=== PATIENT | male | born 1990 | race Caucasian/White ===

== ENCOUNTER 2019-03-02 11:35 | Emergency (ER) | payer SELFPAY ==
[~2019-03-02] VITALS: Ht 177.8 cm; Wt 91.0 kg
[2019-03-02] MEDS ORDERED: ondansetron/PF 4mg/2ml inj IV ONE (12:10)
[2019-03-02] MEDS ORDERED: ketorolac trometh. 30mg/ml inj. IV ONE (12:10)
[2019-03-02] MEDS: morphine 4 MG/ML inj SYRINge IV PRN ×2 (12:19→12:36)
[2019-03-02 12:30] LABS: BASOPHILS # (AUTO) 0.1 X10'3 (0-0.2); BASOPHILS % (AUTO) 0.9 % (0-1); EOSINOPHILS # (AUTO) 0.2 X10'3 (0-0.9); EOSINOPHILS % (AUTO) 2.1 % (0-6); HEMATOCRIT 45.1 % (42.0-52.0); LYMPHOCYTES # (AUTO) 2.9 X10'3 (1.1-4.8); LYMPHOCYTES % (AUTO) 29.1 % (21-51); MEAN CORPUSCULAR HEMOGLOBIN 30.7 PG (27.0-31.0); MEAN CORPUSCULAR HGB CONC 33.3 g/dL (33.0-36.5); MEAN CORPUSCULAR VOLUME 92.2 FL (78-98); MONOCYTES # (AUTO) 0.9 X10'3 (0-0.9); MONOCYTES % (AUTO) 9.1 % (2-12); NEUTROPHILS # (AUTO) 5.8 X10'3 (1.8-7.7); NEUTROPHILS % (AUTO) 58.8 % (42-75); PLATELET COUNT 240 X10'3 (140-440); WHITE BLOOD COUNT 9.8 X10'3 (4.5-11.0)
[2019-03-02 12:34] LABS: CLARITY,URINE CLEAR (Clear); COLOR,URINE YELLOW (Yellow); GLUCOSE, URINE NEGATIVE (Neg); KETONES,URINE NEGATIVE (Neg); LEUKOCYTE ESTERASE ,URINE NEGATIVE (Neg); NITRITES, URINE NEGATIVE (Neg); OCCULT BLOOD,URINE TRACE-INTACT (Neg); PROTEIN,URINE NEGATIVE (Neg); UROBILINOGEN,URINE 0.2 E.U/dL (0.2-1.0)
[2019-03-02 12:39] LABS: BACTERIA,URINE NONE SEEN /HPF (Neg); MUCUS STRANDS FEW /LPF (Neg); RBC,URINE 0-2 /HPF (0-2); SQUAMOUS EPITHELIAL CELL,UR NONE SEEN /LPF (FEW); UA COLLECTION TYPE NON-SPECIFIED; WBC,URINE NONE SEEN /HPF (0-4)
[2019-03-02] MEDS ORDERED: HYDROcodone/acetaminophen 5mg/325mg tablet PO ONE (13:40)
[2019-03-02] MEDS ORDERED: metoclopramide 5 mg/ml inj IV ONE (13:55)
[2019-03-02 13:56] LABS: ALANINE AMINOTRANSFERASE 67 U/L (12-78); ALBUMIN 3.8 G/DL (3.4-5.0); ALBUMIN/GLOBULIN RATIO 1.1 (1.1-1.5); ALKALINE PHOSPHATASE 54 IU/L (46-116); ANION GAP 5 (8-16); ASPARTATE AMINO TRANSFERASE 31 U/L (10-37); BILIRUBIN,TOTAL 0.3 MG/DL (0.1-1.0); BLOOD UREA NITROGEN 14 MG/DL (7-18); BUN/CREATININE RATIO 11.8 (5.4-32.0); CALCIUM 8.4 MG/DL (8.5-10.1); CHLORIDE 108 MMOL/L (99-107); CREATININE 1.19 MG/DL (0.60-1.10); GLUCOSE 106 MG/DL (70-104); POTASSIUM 4.5 MMOL/L (3.5-5.1); SODIUM 141 MMOL/L (135-145); TOTAL CARBON DIOXIDE 27.6 MMOL/L (24-32); TOTAL PROTEIN 7.4 G/DL (6.4-8.2); eGFR 73 ML/MIN
[2019-03-02] MEDS ORDERED: ONDA8TAB6 PO (14:05)
[2019-03-02] MEDS ORDERED: fentaNYL/PF 50MCG/1 ML 2ML syringe IV ONE (14:05)
[2019-03-02] MEDS ORDERED: HYDR-3965 PO (14:05)
--- NOTE | 2019-03-02 14:10 | NUR ---
PATIENT CALLING SISTER TO COME AND PICK HIM UP
[2019-03-02 14:18] VITALS: BP 138/88
== END 2019-03-02 14:25 | disposition home or self-care (01) ==
LOC: ER 11:36
DX: N20.0 Calculus of kidney (principal); Z60.2 Problems related to living alone; Z79.899 Other long term (current) drug therapy
CPT/HCPCS: 36415; 74176; 80053; 81001; 85025; 96374; 96375; 99284; J1885; J2270; J2405; J2765; J3010

== ENCOUNTER 2021-06-15 03:46 | Emergency (ER) | payer OTHER ==
[~2021-06-15] VITALS: Ht 177.8 cm; Wt 98.0 kg
[~2021-06-15 03:46] MED LIST: ONDA8TAB6 PO
[2021-06-15 04:17] LABS: BASOPHILS % (AUTO) 0.1 % (0-1); EOSINOPHILS # (AUTO) 0.1 X10'3 (0-0.9); EOSINOPHILS % (AUTO) 0.5 % (0-6); HEMATOCRIT 46.2 % (42.0-52.0); HEMOGLOBIN 15.5 g/dl (14.0-17.9); LYMPHOCYTES # (AUTO) 0.6 X10'3 (1.1-4.8); LYMPHOCYTES % (AUTO) 4.5 % (21-51); MEAN CORPUSCULAR HEMOGLOBIN 31.3 PG (27.0-31.0); MEAN CORPUSCULAR HGB CONC 33.5 g/dL (33.0-36.5); MEAN CORPUSCULAR VOLUME 93.3 FL (78-98); MEAN PLATELET VOLUME 8.3 FL (7.4-10.4); MONOCYTES # (AUTO) 0.9 X10'3 (0-0.9); MONOCYTES % (AUTO) 6.3 % (2-12); NEUTROPHILS # (AUTO) 12.4 X10'3 (1.8-7.7); NEUTROPHILS % (AUTO) 88.6 % (42-75); PLATELET COUNT 224 X10'3 (140-440); RED BLOOD COUNT 4.95 X10'6 (4.70-6.10); RED CELL DISTRIBUTION WIDTH 13.5 % (11.5-14.5); WHITE BLOOD COUNT 13.9 X10'3 (4.5-11.0)
[2021-06-15 04:25] LABS: ALANINE AMINOTRANSFERASE 57 U/L (12-78); ALBUMIN 3.9 G/DL (3.4-5.0); ALKALINE PHOSPHATASE 71 IU/L (46-116); ANION GAP 11 (8-16); ASPARTATE AMINO TRANSFERASE 19 U/L (10-37); BILIRUBIN,TOTAL 0.9 MG/DL (0.1-1.0); BLOOD UREA NITROGEN 16 MG/DL (7-18); BUN/CREATININE RATIO 12.8 (5.4-32.0); CALCIUM 8.4 MG/DL (8.5-10.1); CHLORIDE 104 MMOL/L (99-107); CREATININE 1.25 MG/DL (0.60-1.10); GLUCOSE 123 MG/DL (70-104); POTASSIUM 3.7 MMOL/L (3.5-5.1); SODIUM 140 MMOL/L (135-145); TOTAL CARBON DIOXIDE 25.5 MMOL/L (24-32); TOTAL PROTEIN 7.8 G/DL (6.4-8.2); eGFR 68 ML/MIN
[2021-06-15] MEDS ORDERED: LORazepam 2 mg/ml vial IV ONE (04:25)
[2021-06-15 05:13] LABS: D-DIMER < 0.19 MG/L FEU (0-0.50)
[2021-06-15 05:17] LABS: ALANINE AMINOTRANSFERASE 50 U/L (12-78); ALBUMIN 3.8 G/DL (3.4-5.0); ALBUMIN/GLOBULIN RATIO 1.1 (1.1-1.5); ALKALINE PHOSPHATASE 70 IU/L (46-116); ASPARTATE AMINO TRANSFERASE 27 U/L (10-37); BILIRUBIN,TOTAL 0.9 MG/DL (0.1-1.0); LIPASE 97 U/L (73-393); TOTAL PROTEIN 7.4 G/DL (6.4-8.2)
[2021-06-15 05:25] LABS: BILIRUBIN,DIRECT 0.1 MG/DL (0-0.3)
[2021-06-15 05:39] VITALS: BP 125/77
== END 2021-06-15 07:47 | disposition home or self-care (01) ==
LOC: ER 03:46
DX: R07.89 Other chest pain (principal); Z20.822 Contact with and (suspected) exposure to COVID-19; Z60.2 Problems related to living alone; Z79.899 Other long term (current) drug therapy
CPT/HCPCS: 36415; 71045; 80053; 80076; 83690; 83880; 84484; 85025; 85379; 87635; 93005; 96374; 99285; C9803; J2060

== ENCOUNTER 2021-07-02 23:20 | Inpatient (IN) | payer OTHER ==
[~2021-07-02] VITALS: Ht 177.8 cm; Wt 100.0 kg
[2021-07-02] MEDS ORDERED: levetiracetam inj 1,000 MG in normal saline 100ml IV soln 90 ML IV ONE (23:35)
[2021-07-02] MEDS ORDERED: normal saline 1000ml 1,000 ML IV ONE (23:35)
[2021-07-02] MEDS ORDERED: ondansetron/PF 4mg/2ml inj IV ONE (23:35)
[2021-07-02] MEDS ORDERED: levetiracetam inj 1,000 MG in normal saline 100ml IV soln 100 ML IV ONE (23:36)
[2021-07-03] MEDS ORDERED: naloxone 0.4 mg/ml inj IV ONE (00:15)
[2021-07-03 00:18] LABS: BASOPHILS % (AUTO) 0.1 % (0-1); EOSINOPHILS % (AUTO) 0.1 % (0-6); HEMATOCRIT 47.1 % (42.0-52.0); HEMOGLOBIN 15.9 g/dl (14.0-17.9); LYMPHOCYTES # (AUTO) 1.4 X10'3 (1.1-4.8); LYMPHOCYTES % (AUTO) 6.5 % (21-51); MEAN CORPUSCULAR HEMOGLOBIN 31.3 PG (27.0-31.0); MEAN CORPUSCULAR HGB CONC 33.7 g/dL (33.0-36.5); MEAN CORPUSCULAR VOLUME 92.8 FL (78-98); MEAN PLATELET VOLUME 8.3 FL (7.4-10.4); MONOCYTES # (AUTO) 1.1 X10'3 (0-0.9); MONOCYTES % (AUTO) 5.5 % (2-12); NEUTROPHILS # (AUTO) 18.3 X10'3 (1.8-7.7); NEUTROPHILS % (AUTO) 87.8 % (42-75); PLATELET COUNT 254 X10'3 (140-440); RED BLOOD COUNT 5.07 X10'6 (4.70-6.10); RED CELL DISTRIBUTION WIDTH 13.2 % (11.5-14.5); WHITE BLOOD COUNT 20.8 X10'3 (4.5-11.0)
[2021-07-03 00:29] LABS: ALANINE AMINOTRANSFERASE 45 U/L (12-78); ALBUMIN 3.7 G/DL (3.4-5.0); ALKALINE PHOSPHATASE 72 IU/L (46-116); ANION GAP 12 (8-16); ASPARTATE AMINO TRANSFERASE 27 U/L (10-37); BILIRUBIN,TOTAL 0.3 MG/DL (0.1-1.0); BLOOD UREA NITROGEN 15 MG/DL (7-18); CALCIUM 8.1 MG/DL (8.5-10.1); CHLORIDE 105 MMOL/L (99-107); GLUCOSE 157 MG/DL (70-104); POTASSIUM 3.8 MMOL/L (3.5-5.1); SODIUM 144 MMOL/L (135-145); TOTAL CARBON DIOXIDE 27.1 MMOL/L (24-32); TOTAL PROTEIN 7.5 G/DL (6.4-8.2); eGFR 55 ML/MIN
[2021-07-03 00:31] LABS: CREATINE KINASE 125 U/L (39-308); ETHANOL < 0.010 GM/DL (0.0-0.010)
[2021-07-03] MEDS ORDERED: aspirin 325mg tablet PO ONE (00:40)
[2021-07-03] MEDS ORDERED: heparin 10,000 units/1 ML INJ IV ONE ×2 (01:10)
[2021-07-03] MEDS ORDERED: iohexol 350MG/ML 100ml bottle IV ONE (01:14)
[2021-07-03 01:40] LABS: PARTIAL THROMBOPLASTIN TIME 22 SECONDS (22-32)
[2021-07-03] MEDS ORDERED: CefTRIAXone/D5W-Rocephin 1gm 50 ML IV ONE (01:50)
[2021-07-03] MEDS ORDERED: azithromycin/NS 500mg/250ml 250 ML IV ONE (01:50)
[2021-07-03] MEDS: heparin 25,000 UNIT/250ml bag 250 ML IV SCH (01:55)
[2021-07-03] MEDS ORDERED: NO HOME MEDS (02:10)
[2021-07-03] MEDS ORDERED: potassium Cl 20 mEq SR tablet PO PRN ×2 (03:15)
[2021-07-03] MEDS ORDERED: potassium CL 10mEq/100ml bag 100 ML IV PRN (03:15)
[2021-07-03] MEDS ORDERED: ondansetron/PF 4mg/2ml inj IV PRN (03:15)
[2021-07-03] MEDS ORDERED: mag hydrox/Alum hydrox/simeth 30ml oral suspension PO PRN (03:15)
[2021-07-03] MEDS ORDERED: magnesium 2GM in 50ml NS 50 ML IV PRN (03:15)
[2021-07-03] MEDS ORDERED: magnesium hydroxide 30ml (MOM) UD suspension PO PRN (03:15)
[2021-07-03] MEDS ORDERED: acetaminophen 325mg tablet PO PRN ×2 (03:15)
[2021-07-03] MEDS ORDERED: magnesium Cl slow-release 64mg tablet PO PRN (03:15)
[2021-07-03] MEDS ORDERED: magnesium 4gm in 100ml NS 100 ML IV PRN (03:15)
[2021-07-03] MEDS ORDERED: heparin 25,000 UNIT/250ml bag 250 ML IV SCH (03:20)
[2021-07-03] MEDS: normal saline 1000ml 1,000 ML IV SCH ×3 (03:25→23:18)
[2021-07-03] MEDS ORDERED: LORazepam 1 MG tablet PO PRN (03:25)
[2021-07-03] MEDS ORDERED: vancomycin 1,750 MG in NS 350ml IV soln IV ONE (03:45)
--- NOTE | 2021-07-03 06:57 | NUR ---
Bedside swallow test completed; patient given water.
[2021-07-03 06:59] LABS: CLARITY,URINE CLOUDY (Clear); COLOR,URINE YELLOW (Yellow); GLUCOSE, URINE NEGATIVE (Neg); KETONES,URINE NEGATIVE (Neg); LEUKOCYTE ESTERASE ,URINE NEGATIVE (Neg); NITRITES, URINE NEGATIVE (Neg); OCCULT BLOOD,URINE LARGE (Neg); PH,URINE 6.5 (4.8-8.0); PROTEIN,URINE TRACE mg/dl (Neg); UROBILINOGEN,URINE 0.2 E.U/dL (0.2-1.0)
[2021-07-03 07:04] LABS: UA COLLECTION TYPE CLN CATCH MIDSTREAM
[2021-07-03 07:07] LABS: MUCUS STRANDS FEW /LPF (Neg); SQUAMOUS EPITHELIAL CELL,UR NONE SEEN /LPF (FEW)
[2021-07-03 07:09] LABS: BACTERIA,URINE FEW /HPF (Neg); RBC,URINE TNTC /HPF (0-2)
[2021-07-03 07:12] LABS: URINE AMPHETAMINE SCREEN POSITIVE (Neg); URINE BARBITUATE SCREEN NEGATIVE (Neg); URINE BENZODIAZEPINES SCREEN NEGATIVE (Neg); URINE CANNABINOID SCREEN NEGATIVE (Neg); URINE COCAINE SCREEN NEGATIVE (Neg); URINE METHADONE SCREEN NEGATIVE (Neg); URINE OPIATE SCREEN NEGATIVE (Neg); URINE PHENCYCLIDINE SCREEN NEGATIVE (Neg)
[2021-07-03] MEDS: K and/or MAG REPLACEMENT MC SCH ×2 (08:00→20:00)
[2021-07-03] MEDS: azithromycin/NS 500mg/250ml 250 ML IV SCH (09:30)
--- NOTE | 2021-07-03 09:34 | NUR ---
Patient resting quietly; no apparent distress.
[2021-07-03] MEDS: cefepime inj 2 GM in dextrose 5%-water 100 ML IV SCH ×2 (10:04→22:09)
[2021-07-03] MEDS: levetiracetam inj 500 MG in normal saline 100ml IV soln 100 ML IV SCH (10:40)
--- NOTE | 2021-07-03 15:00 | NUR ---
Patient reports headache not improved; paged hospitalist. Patient reports right hand pain; given ice pack.
--- NOTE | 2021-07-03 16:00 | NUR ---
Patient sleeping; no apparent distress.
[2021-07-03] MEDS: vancomycin/NS 1 GM ADD-VANTAGE 250 ML IV SCH (16:02)
--- NOTE | 2021-07-03 17:00 | NUR ---
Patient sleeping; no apparent distress; even chest rise and fall.
--- NOTE | 2021-07-03 18:01 | NUR ---
Patient reports headache 04/24; hospitalist paged.
--- NOTE | 2021-07-03 18:22 | NUR ---
Hospitalist paged again.
--- NOTE | 2021-07-03 19:25 | NUR ---
ASSUMED CARE OF PT. SEIZURE PRECAUTIONS IN PLACE. HEPARIN DRIP RUNNING. PT COMPLAINS OF HEADACHE, PRIOR RN LET ME KNOW HOSPITALIST HAS BEEN PAGED 3X FOR PAIN MEDICATION.
[2021-07-03] MEDS: morphine 2 MG/ML inj. syringe IV PRN (20:10)
--- NOTE | 2021-07-03 21:06 | NUR ---
CALLED TO GIVE REPORT. RN BUSY WILL CALL BACK IN 10 MINUTES.
[2021-07-03 22:00] VITALS: BP 114/66
[2021-07-03] MEDS: lactobacillus rhamnosus 10,000 MMU CELLS/CAPSULE PO SCH (22:54)
[2021-07-03] MEDS: HYDROcodone/acetaminophen 5mg/325mg tablet PO PRN (23:22)
[2021-07-04] MEDS: levetiracetam inj 500 MG in normal saline 100ml IV soln 100 ML IV SCH ×3 (00:05→19:37)
[2021-07-04] MEDS: heparin 25,000 UNIT/250ml bag 250 ML IV SCH ×2 (01:44→12:21)
[2021-07-04 03:51] LABS: BASOPHILS % (AUTO) 0.3 % (0-1); EOSINOPHILS # (AUTO) 0.1 X10'3 (0-0.9); EOSINOPHILS % (AUTO) 0.5 % (0-6); HEMATOCRIT 38.8 % (42.0-52.0); HEMOGLOBIN 12.9 g/dl (14.0-17.9); LYMPHOCYTES # (AUTO) 2.3 X10'3 (1.1-4.8); LYMPHOCYTES % (AUTO) 18.8 % (21-51); MEAN CORPUSCULAR HEMOGLOBIN 31.1 PG (27.0-31.0); MEAN CORPUSCULAR HGB CONC 33.4 g/dL (33.0-36.5); MEAN CORPUSCULAR VOLUME 93.2 FL (78-98); MEAN PLATELET VOLUME 8.7 FL (7.4-10.4); MONOCYTES # (AUTO) 0.9 X10'3 (0-0.9); MONOCYTES % (AUTO) 7.4 % (2-12); NEUTROPHILS # (AUTO) 8.7 X10'3 (1.8-7.7); PLATELET COUNT 186 X10'3 (140-440); RED BLOOD COUNT 4.16 X10'6 (4.70-6.10); RED CELL DISTRIBUTION WIDTH 13.1 % (11.5-14.5); WHITE BLOOD COUNT 11.9 X10'3 (4.5-11.0)
[2021-07-04 04:02] LABS: ALANINE AMINOTRANSFERASE 32 U/L (12-78); ALBUMIN 2.8 G/DL (3.4-5.0); ALBUMIN/GLOBULIN RATIO 0.9 (1.1-1.5); ALKALINE PHOSPHATASE 54 IU/L (46-116); ANION GAP 5 (8-16); ASPARTATE AMINO TRANSFERASE 18 U/L (10-37); BILIRUBIN,TOTAL 0.8 MG/DL (0.1-1.0); BLOOD UREA NITROGEN 9 MG/DL (7-18); BUN/CREATININE RATIO 8.1 (5.4-32.0); CALCIUM 7.8 MG/DL (8.5-10.1); CHLORIDE 104 MMOL/L (99-107); CREATININE 1.11 MG/DL (0.60-1.10); GLUCOSE 97 MG/DL (70-104); POTASSIUM 3.6 MMOL/L (3.5-5.1); SODIUM 139 MMOL/L (135-145); TOTAL CARBON DIOXIDE 29.9 MMOL/L (24-32); eGFR 78 ML/MIN
[2021-07-04] MEDS: HYDROcodone/acetaminophen 5mg/325mg tablet PO PRN ×2 (04:13→21:07)
[2021-07-04] MEDS: vancomycin/NS 1 GM ADD-VANTAGE 250 ML IV SCH ×3 (04:49→22:52)
--- NOTE | 2021-07-04 06:44 | NUR ---
Problems reprioritized. Patient report given, questions answered & plan of care reviewed with VERENICE HAMMOND.
[2021-07-04] MEDS: K and/or MAG REPLACEMENT MC SCH ×2 (08:00→20:00)
[2021-07-04] MEDS: morphine 2 MG/ML inj. syringe IV PRN ×3 (08:00→19:35)
[2021-07-04] MEDS: lactobacillus rhamnosus 10,000 MMU CELLS/CAPSULE PO SCH ×2 (08:06→19:36)
[2021-07-04] MEDS: cefepime inj 2 GM in dextrose 5%-water 100 ML IV SCH ×2 (09:07→20:25)
[2021-07-04] MEDS: normal saline 1000ml 1,000 ML IV SCH ×2 (09:18→17:52)
--- NOTE | 2021-07-04 11:15 | NUR ---
Initial: Pt admit DX sepsis, bilateral PNA, CKD, ALOC, elevated troponin, and possible dental abscess tox screen positive for meth per EMR. Pt PO pending first regular meal this admit. Pt crying from pain all morning per DCP note likely to impact PO trends. LBM 07/02 per EMR. Will monitor for PO trends and additional nutrition intervention needs this admit. Rec: 1. continue regular diet 2. monitor for additional protein/kcal needs pending PO trends 3. routine bowel care 4. scaled wt this admit; subsequent weekly wts Addendum: 07/04/21 at [address] Amended: Links added.
[2021-07-04] MEDS: heparin 10,000 units/1 ML INJ IV PRN ×2 (12:20→20:48)
[2021-07-04] MEDS: azithromycin/NS 500mg/250ml 250 ML IV SCH (12:26)
[2021-07-04] MEDS ORDERED: VANCOMYCIN LEVEL IV ONE (14:30)
[2021-07-04] MEDS: LORazepam 1 MG tablet PO PRN (17:48)
[2021-07-04 18:00] VITALS: BP 98/62
--- NOTE | 2021-07-04 18:30 | NUR ---
Patient in room MED 313. I have received report from VERENICE Bridges and had the opportunity to ask questions and assume patient care. Patient resting comfortably on bed, mother at bedside. I will continue to monitor.
--- NOTE | 2021-07-04 18:32 | NUR ---
Problems reprioritized. Patient report given, questions answered & plan of care reviewed with MAURICE CALDERA.
[2021-07-04 22:00] VITALS: BP 106/70
--- NOTE | 2021-07-05 01:40 | NUR ---
Patient's PTT is 92, I left Dr. Collin landaverde and will stop Heparin gtt for 120min per protocol.
[2021-07-05 02:00] VITALS: BP 112/59
[2021-07-05] MEDS: LORazepam 2 mg/ml vial IV PRN (02:15)
[2021-07-05] MEDS: heparin 25,000 UNIT/250ml bag 250 ML IV SCH ×2 (05:07→23:29)
[2021-07-05] MEDS: normal saline 1000ml 1,000 ML IV SCH ×3 (05:09→23:43)
--- NOTE | 2021-07-05 06:21 | NUR ---
Problems reprioritized. Patient report given, questions answered & plan of care reviewed with VERENICE Doshi.
[2021-07-05 06:30] VITALS: BP 117/67
[2021-07-05 07:27] LABS: BASOPHILS # (AUTO) 0.1 X10'3 (0-0.2); BASOPHILS % (AUTO) 0.7 % (0-1); EOSINOPHILS # (AUTO) 0.2 X10'3 (0-0.9); EOSINOPHILS % (AUTO) 1.7 % (0-6); HEMATOCRIT 40.1 % (42.0-52.0); HEMOGLOBIN 13.6 g/dl (14.0-17.9); LYMPHOCYTES # (AUTO) 1.7 X10'3 (1.1-4.8); LYMPHOCYTES % (AUTO) 19.2 % (21-51); MEAN CORPUSCULAR HEMOGLOBIN 31.5 PG (27.0-31.0); MEAN CORPUSCULAR HGB CONC 33.8 g/dL (33.0-36.5); MEAN CORPUSCULAR VOLUME 93.1 FL (78-98); MEAN PLATELET VOLUME 9.6 FL (7.4-10.4); MONOCYTES # (AUTO) 0.7 X10'3 (0-0.9); MONOCYTES % (AUTO) 8.1 % (2-12); NEUTROPHILS # (AUTO) 6.3 X10'3 (1.8-7.7); NEUTROPHILS % (AUTO) 70.3 % (42-75); PLATELET COUNT 176 X10'3 (140-440); RED BLOOD COUNT 4.31 X10'6 (4.70-6.10); RED CELL DISTRIBUTION WIDTH 12.9 % (11.5-14.5)
[2021-07-05 07:37] LABS: ALANINE AMINOTRANSFERASE 26 U/L (12-78); ALBUMIN 2.8 G/DL (3.4-5.0); ALBUMIN/GLOBULIN RATIO 0.8 (1.1-1.5); ALKALINE PHOSPHATASE 54 IU/L (46-116); ANION GAP 6 (8-16); ASPARTATE AMINO TRANSFERASE 14 U/L (10-37); BILIRUBIN,TOTAL 0.6 MG/DL (0.1-1.0); BLOOD UREA NITROGEN 7 MG/DL (7-18); BUN/CREATININE RATIO 6.1 (5.4-32.0); CALCIUM 8.2 MG/DL (8.5-10.1); CHLORIDE 103 MMOL/L (99-107); CREATININE 1.15 MG/DL (0.60-1.10); GLUCOSE 93 MG/DL (70-104); POTASSIUM 3.8 MMOL/L (3.5-5.1); SODIUM 138 MMOL/L (135-145); TOTAL CARBON DIOXIDE 29.1 MMOL/L (24-32); TOTAL PROTEIN 6.2 G/DL (6.4-8.2); eGFR 75 ML/MIN
[2021-07-05] MEDS: lactobacillus rhamnosus 10,000 MMU CELLS/CAPSULE PO SCH ×2 (07:44→20:30)
[2021-07-05] MEDS: vancomycin/NS 1 GM ADD-VANTAGE 250 ML IV SCH ×2 (07:44→15:11)
[2021-07-05] MEDS: heparin 10,000 units/1 ML INJ IV PRN ×2 (07:49→23:30)
[2021-07-05] MEDS: K and/or MAG REPLACEMENT MC SCH ×2 (08:00→19:51)
[2021-07-05] MEDS: levetiracetam inj 500 MG in normal saline 100ml IV soln 100 ML IV SCH ×2 (09:32→20:30)
[2021-07-05] MEDS: cefepime inj 2 GM in dextrose 5%-water 100 ML IV SCH ×2 (09:59→20:35)
[2021-07-05] MEDS: azithromycin/NS 500mg/250ml 250 ML IV SCH (10:55)
[2021-07-05] MEDS: HYDROcodone/acetaminophen 5mg/325mg tablet PO PRN ×2 (10:58→20:35)
[2021-07-05 11:00] VITALS: BP 102/55
[2021-07-05] MEDS ORDERED: VANCOMYCIN LEVEL IV ONE (14:30)
[2021-07-05 15:00] VITALS: BP 125/75
[2021-07-05] MEDS: VANCOmycin 1250MG/NS 250ml Bag 250 ML IV SCH ×2 (16:12→23:42)
[2021-07-05] MEDS: morphine 2 MG/ML inj. syringe IV PRN (16:50)
[2021-07-05 18:00] VITALS: BP 125/69
--- NOTE | 2021-07-05 18:39 | NUR ---
Problems reprioritized. Patient report given, questions answered & plan of care reviewed with VERENICE Jones.
[2021-07-05] MEDS: LORazepam 1 MG tablet PO PRN (20:30)
[2021-07-05 22:00] VITALS: BP 107/77
[2021-07-06 02:00] VITALS: BP 110/63
[2021-07-06] MEDS: morphine 2 MG/ML inj. syringe IV PRN (03:34)
[2021-07-06] MEDS: heparin 25,000 UNIT/250ml bag 250 ML IV SCH (03:36)
[2021-07-06 06:00] VITALS: BP 146/78
[2021-07-06 06:37] LABS: BASOPHILS % (AUTO) 0.4 % (0-1); EOSINOPHILS # (AUTO) 0.2 X10'3 (0-0.9); EOSINOPHILS % (AUTO) 2.3 % (0-6); HEMATOCRIT 36.8 % (42.0-52.0); HEMOGLOBIN 12.4 g/dl (14.0-17.9); LYMPHOCYTES % (AUTO) 24.9 % (21-51); MEAN CORPUSCULAR HEMOGLOBIN 31.2 PG (27.0-31.0); MEAN CORPUSCULAR HGB CONC 33.7 g/dL (33.0-36.5); MEAN CORPUSCULAR VOLUME 92.4 FL (78-98); MEAN PLATELET VOLUME 8.8 FL (7.4-10.4); MONOCYTES # (AUTO) 0.7 X10'3 (0-0.9); MONOCYTES % (AUTO) 9.2 % (2-12); NEUTROPHILS # (AUTO) 5.1 X10'3 (1.8-7.7); NEUTROPHILS % (AUTO) 63.2 % (42-75); PLATELET COUNT 210 X10'3 (140-440); RED BLOOD COUNT 3.98 X10'6 (4.70-6.10); RED CELL DISTRIBUTION WIDTH 12.6 % (11.5-14.5); WHITE BLOOD COUNT 8.1 X10'3 (4.5-11.0)
[2021-07-06 06:56] LABS: ALANINE AMINOTRANSFERASE 26 U/L (12-78); ALBUMIN 2.6 G/DL (3.4-5.0); ALBUMIN/GLOBULIN RATIO 0.8 (1.1-1.5); ALKALINE PHOSPHATASE 49 IU/L (46-116); ANION GAP 6 (8-16); ASPARTATE AMINO TRANSFERASE 18 U/L (10-37); BILIRUBIN,TOTAL 0.6 MG/DL (0.1-1.0); BLOOD UREA NITROGEN 7 MG/DL (7-18); BUN/CREATININE RATIO 6.9 (5.4-32.0); CALCIUM 8.2 MG/DL (8.5-10.1); CHLORIDE 106 MMOL/L (99-107); CREATININE 1.01 MG/DL (0.60-1.10); GLUCOSE 92 MG/DL (70-104); POTASSIUM 3.7 MMOL/L (3.5-5.1); SODIUM 139 MMOL/L (135-145); TOTAL CARBON DIOXIDE 27.2 MMOL/L (24-32); eGFR 87 ML/MIN
--- NOTE | 2021-07-06 07:04 | NUR ---
PAGER ID: [phone] MESSAGE: [id number]. Patient's PTT is 98. I have stopped the infusion now at 0700. Ana CALDERA [id number]
[2021-07-06] MEDS: lactobacillus rhamnosus 10,000 MMU CELLS/CAPSULE PO SCH (07:44)
[2021-07-06] MEDS: HYDROcodone/acetaminophen 5mg/325mg tablet PO PRN (07:44)
[2021-07-06] MEDS: cefepime inj 2 GM in dextrose 5%-water 100 ML IV SCH (07:45)
[2021-07-06] MEDS: levetiracetam inj 500 MG in normal saline 100ml IV soln 100 ML IV SCH (07:46)
[2021-07-06] MEDS: VANCOmycin 1250MG/NS 250ml Bag 250 ML IV SCH ×2 (07:46→16:00)
--- NOTE | 2021-07-06 07:54 | NUR ---
PAGER ID: [phone] MESSAGE: [phone]. Patient is complaining of chest tightness/pain. He says he feels this when he is anxious, will be giving Ativan soon. Heart rate 87 BP is 147/78. Ana CALDERA [id number]
[2021-07-06] MEDS ORDERED: azithromycin 250mg tablet PO SCH (08:00)
[2021-07-06] MEDS: K and/or MAG REPLACEMENT MC SCH (08:00)
[2021-07-06 11:00] VITALS: BP 125/78
[2021-07-06] MEDS: normal saline 1000ml 1,000 ML IV SCH (11:18)
--- NOTE | 2021-07-06 12:30 | NUR ---
PAGER ID: [phone] MESSAGE: [phone]. Patient would like to know when he will go home, is stating he wants to go home. Ana CALDERA [id number]
--- NOTE | 2021-07-06 14:00 | NUR ---
Met with patient in regards to substance use and to see if patient wanted any resources for treatment options. Patient is interested in going to an inpatient rehab facility. Patients insurance is currently pending medical so I gave patient [facility] number and my card so he can follow up when he is discharged and see if medical is approved by then. I told patient that he can call me also when he is discharged and I will help him.
[2021-07-06] MEDS: LORazepam 2 mg/ml vial IV PRN (14:04)
[2021-07-06] MEDS ORDERED: VANCOMYCIN LEVEL IV ONE (15:30)
--- NOTE | 2021-07-06 17:22 | NUR ---
PAGER ID: [phone] MESSAGE: [phone]. Patient wants to leave AMA. Ana CALDERA [id number]
--- NOTE | 2021-07-06 18:30 | NUR ---
Patient signed forms to leave AMA even after receiving education on the risks of leaving AMA and not being cleared by MD. Dr. Hernandez was paged regarding the matter, she is aware. IVs were removed both in LFA and right arm, catheters were intact. Belongings were given to patient. Family/friend was waiting at door to be his transportation. Patient was walked to the elevator, free from injuries.
== END 2021-07-06 17:50 | disposition left against medical advice (07) | DRG 871 ==
LOC: ER 23:21 → ED HOLD 07-03 03:16 → MED 3N 07-03 21:30
PROVIDERS: ADMIT Internal Medicine; ATTEND Internal Medicine
PROC: B32T1ZZ Computerized Tomography (CT Scan) of Left Pulmonary Artery using Low Osmolar Contrast (ICD-10-PCS; 2021-07-03)
PROC: B3201ZZ Computerized Tomography (CT Scan) of Thoracic Aorta using Low Osmolar Contrast (ICD-10-PCS; 2021-07-03)
PROC: B32S1ZZ Computerized Tomography (CT Scan) of Right Pulmonary Artery using Low Osmolar Contrast (ICD-10-PCS; 2021-07-03)
PROC: 4A10X4Z Monitoring of Central Nervous Electrical Activity, External Approach (ICD-10-PCS; principal; 2021-07-04)
DX: A41.9 Sepsis, unspecified organism (principal); J18.9 Pneumonia, unspecified organism; G93.40 Encephalopathy, unspecified; G40.802 Other epilepsy, not intractable, without status epilepticus; Z20.822 Contact with and (suspected) exposure to COVID-19; Z60.2 Problems related to living alone; Z53.29 Procedure and treatment not carried out because of patient's decision for other reasons; N18.9 Chronic kidney disease, unspecified; R55 Syncope and collapse; R77.8 Other specified abnormalities of plasma proteins
CPT/HCPCS: 36415; 70450; 70486; 71045; 71275; 72125; 80053; 80202; 80305; 80320; 81001; 82550; 83605; 83880; 84145; 84484; 85025; 85610; 85730; 87040; 87081; 87088; 87635; 92508; 92616; 93005; 95816; 97110; 97116; 97163; 97530; 99285; C9803; G0378; J0456; J0692; J0696; J1644; J1953; J2060; J2270; J2310; J2405; J3370; J3490; J7030; J7040; J7060; Q9967

== ENCOUNTER 2021-10-08 04:24 | Inpatient (IN) | payer MEDICAID ==
[~2021-10-08] VITALS: Ht 180.3 cm; Wt 100.0 kg
[~2021-10-08 04:24] MED LIST changes: +NO HOME MEDS; -ONDA8TAB6 PO
[2021-10-08] MEDS ORDERED: normal saline 1000ml 1,000 ML IV ONE (04:45)
[2021-10-08] MEDS ORDERED: morphine 4 MG/ML inj SYRINge IV ONE (04:45)
[2021-10-08] MEDS ORDERED: LORazepam 2 mg/ml vial IV ONE (04:50)
--- NOTE | 2021-10-08 05:29 | NUR ---
Pt back from CT. [place], alert, no acute/resp distress. PIV site c/d/i s complication. Pt remains in C-collar per ERP
[2021-10-08 06:08] LABS: BASOPHILS % (AUTO) 0.3 % (0-1); EOSINOPHILS % (AUTO) 0.1 % (0-6); HEMATOCRIT 39.5 % (42.0-52.0); HEMOGLOBIN 13.1 g/dl (14.0-17.9); LYMPHOCYTES # (AUTO) 0.2 X10'3 (1.1-4.8); LYMPHOCYTES % (AUTO) 1.6 % (21-51); MEAN CORPUSCULAR HEMOGLOBIN 30.1 PG (27.0-31.0); MEAN CORPUSCULAR HGB CONC 33.1 g/dL (33.0-36.5); MEAN CORPUSCULAR VOLUME 91.2 FL (78-98); MEAN PLATELET VOLUME 7.8 FL (7.4-10.4); MONOCYTES # (AUTO) 0.5 X10'3 (0-0.9); MONOCYTES % (AUTO) 3.6 % (2-12); NEUTROPHILS # (AUTO) 14.1 X10'3 (1.8-7.7); NEUTROPHILS % (AUTO) 94.4 % (42-75); PLATELET COUNT 204 X10'3 (140-440); RED BLOOD COUNT 4.34 X10'6 (4.70-6.10); RED CELL DISTRIBUTION WIDTH 13.3 % (11.5-14.5); WHITE BLOOD COUNT 14.9 X10'3 (4.5-11.0)
--- NOTE | 2021-10-08 06:09 | NUR ---
Pt pink, no acute/resp distress. PIV site c/d/i s complication or adverse. Report given to Kelly CALDERA
[2021-10-08 06:23] LABS: ALANINE AMINOTRANSFERASE 32 U/L (12-78); ALBUMIN 3.3 G/DL (3.4-5.0); ALBUMIN/GLOBULIN RATIO 0.8 (1.1-1.5); ALKALINE PHOSPHATASE 74 IU/L (46-116); ANION GAP 5 (8-16); ASPARTATE AMINO TRANSFERASE 32 U/L (10-37); BILIRUBIN,TOTAL 0.9 MG/DL (0.1-1.0); BLOOD UREA NITROGEN 10 MG/DL (7-18); BUN/CREATININE RATIO 9.1 (5.4-32.0); CALCIUM 7.9 MG/DL (8.5-10.1); CHLORIDE 102 MMOL/L (99-107); GLUCOSE 109 MG/DL (70-104); POTASSIUM 3.7 MMOL/L (3.5-5.1); SODIUM 134 MMOL/L (135-145); TOTAL CARBON DIOXIDE 26.7 MMOL/L (24-32); TOTAL PROTEIN 7.3 G/DL (6.4-8.2); eGFR 78 ML/MIN
[2021-10-08 06:30] LABS: APTT 30 SECONDS (22-32)
[2021-10-08] MEDS ORDERED: vancomycin inj 1,750 MG in normal saline 500ml IV soln 350 ML IV ONE (06:30)
--- NOTE | 2021-10-08 06:30 | NUR ---
patient in bed,c collar on.
[2021-10-08] MEDS ORDERED: CefTRIAXone 2gm/D5W 50ml BAG 50 ML IV ONE (06:35)
[2021-10-08] MEDS ORDERED: dexamethasone sod phosphate 10mg/ml inj IV STA (06:36)
[2021-10-08] MEDS ORDERED: CefTRIAXone 2gm/NS 100ml IVPB 100 ML IV ONE (07:00)
[2021-10-08] MEDS ORDERED: levetiracetam inj 1,000 MG in normal saline 100ml IV soln 90 ML IV STA (07:42)
[2021-10-08] MEDS ORDERED: levetiracetam-NS 1000mg/100ml 100 ML IV STA (07:45)
[2021-10-08 07:47] LABS: GLUCOSE,CSF 73 MG/DL (40-75); TOTAL PROTEIN,CSF 97 MG/DL (15-45)
[2021-10-08 07:51] LABS: APPEARANCE,CSF CLEAR; CSF SUPERNATANT COLOR COLORLESS; CSF VOLUME 2 ML; TUBE# COUNTED 2
[2021-10-08 07:53] LABS: CSF RBC 1 /CU MM (0); CSF WBC CT 1 /CU MM (0-5)
--- NOTE | 2021-10-08 07:56 | NUR ---
notified critical lab value csf wbc is 1.
[2021-10-08 09:06] LABS: CLARITY,URINE CLEAR (Clear); COLOR,URINE YELLOW (Yellow); GLUCOSE, URINE NEGATIVE (Neg); KETONES,URINE NEGATIVE (Neg); LEUKOCYTE ESTERASE ,URINE NEGATIVE (Neg); NITRITES, URINE NEGATIVE (Neg); OCCULT BLOOD,URINE NEGATIVE (Neg); PH,URINE 7.5 (4.8-8.0); PROTEIN,URINE NEGATIVE (Neg)
[2021-10-08 09:07] LABS: UA COLLECTION TYPE CLN CATCH MIDSTREAM
[2021-10-08 09:08] LABS: URINE AMPHETAMINE SCREEN POSITIVE (Neg); URINE BARBITUATE SCREEN NEGATIVE (Neg); URINE BENZODIAZEPINES SCREEN NEGATIVE (Neg); URINE CANNABINOID SCREEN NEGATIVE (Neg); URINE COCAINE SCREEN NEGATIVE (Neg); URINE METHADONE SCREEN NEGATIVE (Neg); URINE OPIATE SCREEN POSITIVE (Neg); URINE PHENCYCLIDINE SCREEN NEGATIVE (Neg)
--- NOTE | 2021-10-08 09:26 | NUR ---
pt unable to sign mri consent at this time.pt will not answer questions from screening form,pt kept moaning.
--- NOTE | 2021-10-08 11:00 | NUR ---
Dr. Hernandez at bedside.
[2021-10-08] MEDS ORDERED: potassium Cl 20 mEq SR tablet PO PRN ×2 (11:25)
[2021-10-08] MEDS ORDERED: PERFLUTREN PROTEIN-A MICROSPHR (Optison) 0.22 MG/ML 3ML VIAL IV ONE (11:25)
[2021-10-08] MEDS ORDERED: potassium CL 10mEq/100ml bag 100 ML IV PRN (11:25)
[2021-10-08] MEDS ORDERED: ondansetron/PF 4mg/2ml inj IV PRN (11:25)
[2021-10-08] MEDS ORDERED: magnesium 4gm in 100ml NS 100 ML IV PRN (11:25)
[2021-10-08] MEDS ORDERED: magnesium Cl slow-release 64mg tablet PO PRN (11:25)
[2021-10-08] MEDS ORDERED: magnesium 2GM in 50ml NS 50 ML IV PRN (11:25)
[2021-10-08] MEDS ORDERED: acetaminophen 325mg tablet PO PRN (11:25)
[2021-10-08] MEDS: normal saline 1000ml 1,000 ML IV SCH ×2 (11:45→14:23)
--- NOTE | 2021-10-08 12:10 | NUR ---
spoke to patients sister regarding pts condition and IPA. pt is negative for covid and meningitis. 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 sister is unsure of diagnosis and details related to patients medical condition
[2021-10-08 12:44] LABS: MAGNESIUM 1.6 MG/DL (1.5-2.4)
[2021-10-08 14:04] VITALS: BP 96/56
[2021-10-08 18:00] VITALS: BP 123/73
[2021-10-08 19:44] LABS: CREATINE KINASE 47 U/L (39-308)
[2021-10-08] MEDS: K and/or MAG REPLACEMENT MC SCH (20:00)
[2021-10-08 22:00] VITALS: BP 129/80
[2021-10-09 02:00] VITALS: BP 107/89
[2021-10-09 06:00] VITALS: BP 118/77
[2021-10-09 07:25] LABS: BASOPHILS % (AUTO) 0.3 % (0-1); EOSINOPHILS % (AUTO) 0.2 % (0-6); HEMATOCRIT 41.8 % (42.0-52.0); HEMOGLOBIN 13.7 g/dl (14.0-17.9); LYMPHOCYTES # (AUTO) 0.5 X10'3 (1.1-4.8); LYMPHOCYTES % (AUTO) 4.9 % (21-51); MEAN CORPUSCULAR HEMOGLOBIN 30.2 PG (27.0-31.0); MEAN CORPUSCULAR HGB CONC 32.8 g/dL (33.0-36.5); MEAN PLATELET VOLUME 8.4 FL (7.4-10.4); MONOCYTES # (AUTO) 0.7 X10'3 (0-0.9); MONOCYTES % (AUTO) 7.3 % (2-12); NEUTROPHILS % (AUTO) 87.3 % (42-75); PLATELET COUNT 203 X10'3 (140-440); RED BLOOD COUNT 4.54 X10'6 (4.70-6.10); RED CELL DISTRIBUTION WIDTH 13.6 % (11.5-14.5); WHITE BLOOD COUNT 10.3 X10'3 (4.5-11.0)
[2021-10-09 07:36] LABS: ALBUMIN 2.9 G/DL (3.4-5.0); ANION GAP 9 (8-16); BLOOD UREA NITROGEN 13 MG/DL (7-18); BUN/CREATININE RATIO 13.7 (5.4-32.0); CALCIUM 8.5 MG/DL (8.5-10.1); CHLORIDE 102 MMOL/L (99-107); CREATININE 0.95 MG/DL (0.60-1.10); GLUCOSE 100 MG/DL (70-104); MAGNESIUM 2.3 MG/DL (1.5-2.4); POTASSIUM 4.5 MMOL/L (3.5-5.1); SODIUM 135 MMOL/L (135-145); TOTAL CARBON DIOXIDE 24.2 MMOL/L (24-32); eGFR > 90 ML/MIN
[2021-10-09] MEDS: K and/or MAG REPLACEMENT MC SCH (08:00)
[2021-10-09 11:00] VITALS: BP 122/88
[2021-10-09] MEDS ORDERED: CefTRIAXone 2gm/D5W 50ml BAG 50 ML IV SCH (11:50)
[2021-10-09] MEDS ORDERED: vancomycin/NS 1 GM ADD-VANTAGE 250 ML IV SCH (13:00)
[2021-10-09] MEDS: normal saline 1000ml 1,000 ML IV SCH (14:17)
[2021-10-09 15:00] VITALS: BP 135/76
[2021-10-10] MEDS ORDERED: ONDA8TAB13 PO (11:49)
[2021-10-10] MEDS ORDERED: PANT-47 PO (11:49)
[2021-10-10] MEDS ORDERED: VANCOMYCIN LEVEL IV ONE (12:30)
== END 2021-10-09 17:36 | disposition left against medical advice (07) | DRG 861 ==
LOC: ER 04:25 → ED HOLD 11:25 → PCU 3S 13:43
PROVIDERS: ADMIT Internal Medicine; ATTEND Internal Medicine
PROC: 009U3ZX Drainage of Spinal Canal, Percutaneous Approach, Diagnostic (ICD-10-PCS; principal; 2021-10-08)
DX: R52 Pain, unspecified (principal); F15.90 Other stimulant use, unspecified, uncomplicated; R50.9 Fever, unspecified; Z60.2 Problems related to living alone; Z20.822 Contact with and (suspected) exposure to COVID-19; Z53.29 Procedure and treatment not carried out because of patient's decision for other reasons
CPT/HCPCS: 36415; 62270; 70450; 70551; 71045; 72125; 72128; 72131; 80048; 80053; 80305; 81003; 82550; 82945; 83605; 83735; 83880; 84157; 84484; 85025; 85610; 85730; 87015; 87040; 87070; 87635; 89051; 93005; 93306; 96361; 96365; 96367; 96375; 97116; 97161; 99285; C9803; G0378; J0696; J1100; J1953; J2060; J2270; J3370; J7030; J7040

== ENCOUNTER 2022-01-26 00:26 | Emergency (ER) | payer MEDICAID ==
[~2022-01-26] VITALS: Ht 177.8 cm; Wt 80.9 kg
[~2022-01-26 00:26] MED LIST changes: +ONDA8TAB13 PO; +PANT-47 PO
[2022-01-26] MEDS ORDERED: normal saline 1000ml 1,000 ML IV ONE ×2 (01:00→03:50)
[2022-01-26] MEDS ORDERED: ondansetron/PF 4mg/2ml inj IV ONE (01:00)
[2022-01-26] MEDS ORDERED: ketorolac trometh. 30mg/ml inj. IV ONE (01:00)
[2022-01-26] MEDS ORDERED: ondansetron/PF 4mg/2ml inj ONE (01:10)
[2022-01-26] MEDS ORDERED: ketorolac trometh. 30mg/ml inj. ONE (01:10)
[2022-01-26 01:33] LABS: BASOPHILS % (AUTO) 0.5 % (0-1); EOSINOPHILS # (AUTO) 0.1 X10'3 (0-0.9); HEMATOCRIT 37.4 % (42.0-52.0); HEMOGLOBIN 12.6 g/dl (14.0-17.9); LYMPHOCYTES # (AUTO) 1.8 X10'3 (1.1-4.8); LYMPHOCYTES % (AUTO) 20.1 % (21-51); MEAN CORPUSCULAR HEMOGLOBIN 30.8 PG (27.0-31.0); MEAN CORPUSCULAR HGB CONC 33.8 g/dL (33.0-36.5); MEAN PLATELET VOLUME 7.9 FL (7.4-10.4); MONOCYTES # (AUTO) 1.3 X10'3 (0-0.9); MONOCYTES % (AUTO) 14.7 % (2-12); NEUTROPHILS # (AUTO) 5.7 X10'3 (1.8-7.7); NEUTROPHILS % (AUTO) 63.7 % (42-75); PLATELET COUNT 212 X10'3 (140-440); RED BLOOD COUNT 4.11 X10'6 (4.70-6.10); RED CELL DISTRIBUTION WIDTH 14.4 % (11.5-14.5)
[2022-01-26 01:37] LABS: ALANINE AMINOTRANSFERASE 22 U/L (12-78); ALBUMIN 3.4 G/DL (3.4-5.0); ALBUMIN/GLOBULIN RATIO 0.8 (1.1-1.5); ALKALINE PHOSPHATASE 97 IU/L (46-116); AMYLASE 33 U/L (25-115); ANION GAP 6 (8-16); ASPARTATE AMINO TRANSFERASE 32 U/L (10-37); BILIRUBIN,TOTAL 0.4 MG/DL (0.1-1.0); BLOOD UREA NITROGEN 10 MG/DL (7-18); BUN/CREATININE RATIO 8.2 (5.4-32.0); CALCIUM 8.2 MG/DL (8.5-10.1); CHLORIDE 104 MMOL/L (99-107); CREATININE 1.22 MG/DL (0.60-1.10); GLUCOSE 92 MG/DL (70-104); LIPASE 76 U/L (73-393); POTASSIUM 3.7 MMOL/L (3.5-5.1); SODIUM 138 MMOL/L (135-145); TOTAL CARBON DIOXIDE 28.3 MMOL/L (24-32); TOTAL PROTEIN 7.5 G/DL (6.4-8.2); eGFR 69 ML/MIN
[2022-01-26] MEDS ORDERED: ONDA8TAB13 PO (05:47)
[2022-01-26] MEDS ORDERED: FLO0.4C PO (05:47)
[2022-01-26] MEDS ORDERED: IBUP-1984 PO (05:47)
[2022-01-26 05:53] LABS: CLARITY,URINE CLEAR (Clear); COLOR,URINE YELLOW (Yellow); UA COLLECTION TYPE URINAL
[2022-01-26 05:54] LABS: GLUCOSE, URINE NEGATIVE (Neg); KETONES,URINE NEGATIVE (Neg); LEUKOCYTE ESTERASE ,URINE NEGATIVE (Neg); NITRITES, URINE NEGATIVE (Neg); OCCULT BLOOD,URINE LARGE (Neg); PROTEIN,URINE NEGATIVE (Neg); UROBILINOGEN,URINE 0.2 E.U/dL (0.2-1.0)
[2022-01-26 06:02] LABS: BACTERIA,URINE NONE SEEN /HPF (Neg); MUCUS STRANDS NONE SEEN /LPF (Neg); SQUAMOUS EPITHELIAL CELL,UR FEW /LPF (FEW); WBC,URINE 0-4 /HPF (0-4)
[2022-01-26 06:03] VITALS: BP 125/69
== END 2022-01-26 06:44 | disposition home or self-care (01) ==
LOC: ER 00:26
DX: N23 Unspecified renal colic (principal); F15.20 Other stimulant dependence, uncomplicated
CPT/HCPCS: 36415; 74176; 80053; 81001; 82150; 83690; 85025; 96361; 96374; 96375; 99284; J1885; J2405; J7030

== ENCOUNTER 2022-12-26 20:51 | Emergency (ER) | payer MEDICAID ==
[~2022-12-26] VITALS: Ht 175.3 cm; Wt 94.1 kg
[2022-12-26 20:55] VITALS: BP 134/94
--- NOTE | 2022-12-26 21:11 | NUR ---
Patient refused xray and left the ER w/o being seen
== END 2022-12-26 21:12 | disposition left against medical advice (07) ==
LOC: ER 20:52
DX: M25.571 Pain in right ankle and joints of right foot (principal); Z53.21 Procedure and treatment not carried out due to patient leaving prior to being seen by health care provider
CPT/HCPCS: 99281

== ENCOUNTER 2025-02-12 11:08 | Inpatient (IN) | payer MEDICAID ==
[~2025-02-12] VITALS: Ht 175.3 cm; Wt 83.3 kg
[~2025-02-12 11:08] MED LIST changes: +ONDA-245 PO; -ONDA8TAB13 PO
[2025-02-12] MEDS: normal saline 1000ML IV soln IVB ONE (12:02)
[2025-02-12 12:15] LABS: MEAN PLATELET VOLUME 7.3 FL (7.4-10.4); RED CELL DISTRIBUTION WIDTH 13.3 % (11.5-14.5)
[2025-02-12 12:25] LABS: CREATININE 1.00 MG/DL (0.60-1.10); TOTAL CARBON DIOXIDE 27.0 MMOL/L (24-32); eCRCL 104 ML/MIN; eGFR 86 ML/MIN
[2025-02-12] MEDS ORDERED: iohexol 300mg/ml 100ml inj. ONE (12:35)
[2025-02-12] MEDS: acetaminophen 1,000mg/100ml IV 100 ML IV SCH (12:41)
[2025-02-12] MEDS: clindamycin-Cleocin 900mg/D5W 50 ML IV ONE (13:06)
--- NOTE | 2025-02-12 13:32 | RADIOLOGY REPORT ---
CT CT NECK SOFT TISSUES W/ IV CONTRAST INDICATION: Evaluation of possible tongue abscess and r/o ludwigz angina EXAM DATE: 02/12/2025 12:53 PM COMPARISON: CT HEAD on DOS: 10/08/21 RADIATION DOSE: CTDIvol: 13 mGy, DLP: 473 mGy*cm PROCEDURE: Using the CT scanner, contiguous axial images were obtained from the great vessels to abov e the orbits following intravenous administration of mL IV contrast. Coronal and sagittal reformat dana images were then generated. All CT scans at this medical facility are performed using dose modulation techniques as appropriate t o a performed exam including the following: Automated exposure control was utilized; adjustment of th e MA and/or KV according to patient size; and use of iterative reconstruction technique. FINDINGS: Edema at the base of tongue and left submandibular gland and prominent palatine tonsils wi th prominent bilateral cervical lymph nodules. The pharynx, larynx and trachea are otherwise normal. The parotid, submandibular and thyroid glands appear otherwise normal. The visible paranasal sinuses , mastoid air cells and middle ear cavities are normally aerated. The skeletal structures, vasculatur e, and lung apices are normal. The visualized intracranial structures are normal. IMPRESSION: Edema at the base of tongue and left submandibular gland and prominent palatine tonsils with promine nt bilateral cervical lymph nodules could be seen with an inflammatory reaction such as from allergie s. However no focal fluid collection to suggest for abscess. Airway appears patent.
--- NOTE | 2025-02-12 14:49 | Physician Documentation ---
History of Present Illness ~ Chief Complaint: Tongue Pain Stated Complaint: HAND INFECTION AND TONGUE SWELLING Time Seen by MD: 11:47 Mode of Arrival: Ambulatory Medication Reconciliation Allergies: Coded Allergies: No Known Allergies (Unverified , 01/26/22) Scheduled Ondansetron 8mg ODT (Ondansetron Odt), 1 TAB PO Q6H Ondansetron 8mg ODT (Ondansetron Odt), 1 TAB PO Q6H Pantoprazole Sodium (PROTONIX tablet), 1 TAB PO DAILY Miscellaneous Medications Home Med List (No Home Medications), (Reported) Past Medical History Past Medical History: Seizures Past Surgical History: noncontributory Patient History: Patient reports no known family medical history. Smoking Status: Never smoker Drug Use: methamphetamine Lives with: Alone Lives In: Home Physical Exam Vital Signs: Temperature: 99.2, Source: Oral, Heart Rate: 74, Respiratory Rate: 14, BP: 130/86, Pulse Oximetry: 97, Weight: 83.300 Oxygen Flow Rate: 0 Progress Results/Orders Results/Orders Orders - THONY CORREA CURBING STONECUTTER Culture Body Fluid Order (02/12/25 11:47) Ct Neck Soft Tissues (02/12/25 12:59) Acetaminophen 1,000mg/100ml Iv (Ofirmev (02/12/25 14:00) Page Hospitalist (02/12/25 13:55) Fill Out Med Reconciliation (02/12/25 13:55) Strep A Rapid (02/12/25 14:43) Completed Orders - THONY CORREA [employer] STONECUTTER Cbc/Diff (02/12/25 11:47) CMP (02/12/25 11:47) LA (02/12/25 11:47) Ct Neck Soft Tissues (02/12/25 12:59) Methylprednisolone Sod Succ (Solumedrol (02/12/25 11:55) Normal Saline 1000ml (0.9% Sodium Chlori (02/12/25 11:55) Morphine 2mg/Ml Inj. (Morphine Inj.) (02/12/25 12:05) Iohexol 300mg/Ml 100ml Inj. (Omnipaque-3 (02/12/25 12:35) Medications Received in ER Medications (Trade) Dose Ordered Sig/Eric Route PRN Reason Start Time Stop Time Status Last Admin Dose Admin (SoluMEDROL 125mg inj) 125 mg ONCE ONCE IV 02/12/25 11:55 02/12/25 11:56 DC 02/12/25 12:01 125 MG (0.9% sodium chloride (NS) 1000ml IV soln) 500 ml ONCE ONCE IVB 02/12/25 11:55 02/12/25 11:56 DC 02/12/25 12:02 500 ML Clindamycin HCl/ Dextrose 50 ml @ 100 mls/hr ONCE ONCE IV 02/12/25 12:32 02/12/25 13:01 DC 02/12/25 13:06 100 MLS/HR (morphine inj.) 2 mg ONCE ONCE IV 02/12/25 12:05 02/12/25 12:07 DC 02/12/25 12:42 2 MG Acetaminophen 100 ml @ 400 mls/hr Q6H IV 02/12/25 14:00 02/13/25 12:05 02/12/25 12:41 400 MLS/HR Vital Signs 02/12/25 02/12/25 02/12/25 02/12/25 11:13 11:51 12:42 13:58 Temp 99.7 99.2 Pulse 113 74 Resp 16 16 14 B/P (MAP) 121/77 130/86 (101) Pulse Ox 96 97 O2 Flow Rate 0 0 Laboratory Tests Test 02/12/25 12:02 White Blood Count 19.4 H Red Blood Count 3.70 L Hemoglobin 11.9 L Hematocrit 34.6 L Mean Corpuscular Volume 93.6 Mean Corpuscular Hemoglobin 32.1 H Mean Corpuscular Hemoglobin Concent 34.3 Red Cell Distribution Width 13.3 Platelet Count 234 Mean Platelet Volume 7.3 L Neutrophils (%) (Auto) 76.7 H Lymphocytes (%) (Auto) 10.7 L Monocytes (%) (Auto) 12.3 H Eosinophils (%) (Auto) 0.1 Basophils (%) (Auto) 0.2 Neutrophils # (Auto) 14.9 H Lymphocytes # (Auto) 2.1 Monocytes # (Auto) 2.4 H Eosinophils # (Auto) 0.0 Basophils # (Auto) 0.0 CBC Comment Sodium Level 132 L Potassium Level 3.5 Chloride Level 98 L Carbon Dioxide Level 27.0 Anion Gap 7 L Blood Urea Nitrogen 14 Creatinine 1.00 Estimated GFR/1.73 m2 86 BUN/Creatinine Ratio 14.0 Glucose Level 105 H Lactic Acid Level 1.0 Calcium Level 8.3 L Total Bilirubin 1.8 H Aspartate Amino Transf (AST/SGOT) 29 Alanine Aminotransferase (ALT/SGPT) 21 Alkaline Phosphatase 104 Total Protein 7.9 Albumin 3.5 Globulin 4.4 H Albumin/Globulin Ratio 0.8 L Chemistry Comments Departure Disposition: 30 STILL A PATIENT Admitted to Inpatient Unit: to hospitalist Admission Level of Care: Med/Surg Impression: Primary Impression: Swelling of face Additional Impression: Abscess of tongue Condition: Stable Referrals: NO PRIMARY CARE PROVIDER (PCP) THONY CORREA [employer]ING STONECUTTER Feb 12, 2025 14:49
[2025-02-12] MEDS ORDERED: mag hydrox/Alum hydrox/simeth 30ml oral suspension PO PRN (15:20)
[2025-02-12] MEDS ORDERED: metoclopramide 5 mg/ml inj IV PRN (15:20)
[2025-02-12] MEDS ORDERED: ondansetron/PF 4mg/2ml inj IV PRN (15:20)
[2025-02-12] MEDS ORDERED: magnesium sulf-water 4G/100mL 100 ML IV PRN (15:20)
[2025-02-12] MEDS ORDERED: ondansetron 4mg rapidly disintigrating tab PO PRN (15:20)
[2025-02-12] MEDS ORDERED: magnesium hydroxide 30ml (MOM) UD suspension PO PRN (15:20)
[2025-02-12] MEDS ORDERED: potassium Cl 40MEQ/1/2NS 520ml 520 ML IV PRN (15:20)
[2025-02-12] MEDS ORDERED: bisacodyl 10mg suppository rectal RC PRN (15:20)
[2025-02-12] MEDS ORDERED: magnesium sulf-water 2g/50mL 50 ML IV PRN (15:20)
[2025-02-12] MEDS ORDERED: potassium Cl 20 mEq SR tablet PO PRN ×2 (15:20)
[2025-02-12] MEDS ORDERED: acetaminophen 650mg rectal suppository RC PRN (15:20)
[2025-02-12] MEDS ORDERED: HYDROmorphone inj. 0.5 MG/0.5 ML DISP.SYRIN IV PRN (15:20)
[2025-02-12] MEDS ORDERED: magnesium Cl slow-release 64mg tablet PO PRN (15:20)
[2025-02-12 15:28] LABS: STREP A SCREEN POSITIVE (Neg)
--- NOTE | 2025-02-12 15:48 | HISTORY AND PHYSICAL ---
History & Physical Providers to Complaint, tongue swelling associated with pain ~ History of Present Illness Reason for Admit\Complaint: As above History of Present Illness This is a 34 years old white male with history of multiple medical problems including chronic amphetamine abuse including currently, history of polysubstance abuse amphetamine opioids, history of hepatitis syncope, gastritis, cholelithiasis, history of CT, GERD, seizure disorder, anemia hemoglobin 11.9, presented today to emergency department chief complaint tongue swelling associated with sharp pain radiated in the back of the neck, started two days ago after apparently patient bit his tongue, has gotten worse today associated with fever and palpitation that is why patient elected to address this problem to emergency department, in emergency department he was evaluated by medical provider, was diagnosed with sepsis, acute posttraumatic glossitis, started on IV antibiotics, and decision was made to admit patient for further evaluation and treatment. No additional complaint or concern Allergies: Coded Allergies: No Known Allergies (Unverified , 01/26/22) Active prescriptions I reviewed reconciled Home Medications Home Medications Active Ondansetron Odt (Ondansetron HCl) 8 Mg Tab.rapdis 1 Tab PO Q6H 3 Days Ondansetron Odt (Ondansetron HCl) 8 Mg Tab.rapdis 1 Tab PO Q6H 3 Days PROTONIX tablet (Pantoprazole Sodium) 40 Mg Tablet.dr 1 Tab PO DAILY 30 Days Reported No Home Medications (Home Med List) Each Past Medical History Past Medical History As in HPI Past Surgical History Surgical History Comment As in HPI Family History Family History: Family history was reviewed; no changes noted. Past Social History Social History Comment Positive for chronic amphetamine abuse including currently, deny illicit drug abuse otherwise, no alcohol use does not smoke, live with the family good social support Health Maintenance Health Maintenance Noncontributory ROS ROS Constitutional : no fever , no chills, or weakness. No diaphoresis. Allergic/Immunologic, no lymphadenopathy, no hives, no skin eruptions. Eyes, no recent visual changes, no eye pain, no photophobia. Ears, nose, mouth, throat, no sore throat, no nosebleed, no ear pain. Positive for tongue swelling associated with pain Cardiovascular, no palpitations, skipped beats, chest pain, no peripheral edema, Respiratory, no dyspnea, orthopnea, cough, hemoptysis, chest wall pain. Gastrointestinal, no abdominal pain, nausea, vomiting, constipation or diarrhea. : no dysuria, hematuria, pelvic pain, urethral d/c. Endocrine, no polyuria, polydipsia, recent unintentional weight gain or loss. Hematologic/Lymphatic, no petechiae, no enlarged lymph nodes, no bone pain. Integumentary, no rash, no skin lesions, Musculoskeletal, no muscle aches, or pain, no muscle cramps, no recent change in gait Neurological, no dizziness, no headache, no syncope, no paresthesia. Psychiatric, no delusions, visual hallucinations, or hearing hallucinations. ROS - in rest is as in HPI. Exam Vitals: Vital Signs Date Time Temp Pulse Resp B/P (MAP) Pulse Ox O2 Delivery O2 Flow Rate FiO2 02/12/25 13:58 99.2 74 14 130/86 (101) 97 0 Vital signs, stable tachycardic, febrile, Pulse Oximetry reflects adequate oxygenation. BMI is 27, weight 83 kg General: well developed, well nourished. Awake , alert, and oriented x4, resting comfortably in the bed, in no acute distress . Skin: Warm, dry, no pallor, no rash or petechiae. HEENT: Atraumatic, normocephalic, EOMI, anicteric sclera B; pink conjunctiva; PERRLA, normal oropharynx, moist oral and nasal mucosa. Oral mucosa including tongue, morbid white plaques, tongue plus three edema, CVA tender to palpation and movement, positive for cervical anterior, lymphadenopathy, Tympanic membrane , nose , throat clear. Neck: Trachea midline. Supple, full range of motion, no JVD, bruit , hepatojugular reflex , lymphadenopathy or masses, or other lesions Cardiac: Regular rhythm, regular rate no murmurs, rubs, or gallops. Normal S1 and S2, no S3 noticed. PMI is normal. Respiratory: Equal breath sounds bilaterally, no tachypnea; lungs clear to auscultation bilaterally, no wheezing ,rub or rales, or crackles. Chest wall is symmetric and without deformity. No signs of trauma. Chest wall is nontender. No signs of respiratory distress. Resonance is normal upon percussion bilaterally. Gastrointestinal: Abdomen symmetric, non-distended, soft, non-tender, normal bowel sounds x4 quadrant, normoactive, no hepatosplenomegaly , no masses , no bruit, no flank pain bilaterally. No voluntary guarding, rebound, or rigidity. No tenderness to percussion. No pulsatile masses. Equal femoral pulses. No Huff's sign or McBurney point tenderness. Back; no CVA tenderness bilaterally, no deformities. Neck and back are without deformity as well. No tenderness noted on palpation of the spinous processes. Spinous processes are midline. Cervical, thoracic, and lumbar paraspinal muscles are not tender and are without spasm. : normal external genitalia, without lesions, swelling, masses or tenderness. Musculoskeletal: Extremities, normal range of motion, non-tender, muscle strength 5/5 x 4. Negative Homans signs bilaterally on lower extremity. Distal pulses full symmetrical, no clubbing, cyanosis , edema. Neurological: Speech is clear, alert, and oriented x 4. No motor or sensory deficit, deep tendon reflexes normal, cerebellar intact. Cranial nerves II-XII intact. Psych: Alert and or appropriate, normal affect. Vascular: Good distal pulses, which are equal x4; capillary refill less than 2 seconds. Lymphatic, no lymphadenopathy. Diagnostic Data Last Recorded Lab Results: 02/12/25 1202 02/12/25 1202 Advance Care Planning Advanced Care plannin - 30 Minutes Additional Plan Assessment Chronic amphetamine abuse including currently Acute amphetamine intoxication Acute posttraumatic glossitis Oral candidiasis [place] tonsillitis Anterior neck cervical lymphadenopathy Sepsis Anemia hemoglobin 11.9 Hyponatremia Additional comorbidities, history of seizure, GERD, rhabdomyolysis, CT, polysubstance abuse methamphetamine opioids, hepatitis, syncope, cholelithiasis, gastritis Plan IV fluids, steroids, antibiotics Pepcid IV IV Benadryl Epinephrine subQ x1 dose Oral rinse with antiseptics TD updated today Correct electrolytes Additional lab work pending Substance abuse navigator consult Consulted for 5 minutes to stop using illicit drugs patient agrees understood Reconciled home medications DVT gastropathy prophylaxis addressed Sepsis Screening Reassessment Date: Feb 12, 2025 Date of Service: Feb 12, 2025 Billing Provider: LUMA SHOEMAKER MD Common Visit Codes: [id number] INP/OBS CARE (HIGH) Secondary Visit Codes: [id number] CARE PLAN 30 MINUTES LUMA SHOEMAKER MD Feb 12, 2025 15:48
[2025-02-12 15:58] LABS: PHOSPHORUS 3.2 MG/DL (2.3-4.5)
[2025-02-12 16:03] LABS: APTT 28 SECONDS (22-32); INR 1.2 INR
--- NOTE | 2025-02-12 16:30 | RADIOLOGY REPORT ---
EXAM: DI CHEST,SINGLE VIEW TECHNIQUE: Single frontal chest radiograph CLINICAL HISTORY: sepsis COMPARISON: CHEST,SINGLE VIEW on DOS: 10/10/21, CHEST,SINGLE VIEW on DOS: 10/08/21 Findings/Impression: Frontal chest radiograph demonstrates no acute osseous or superficial soft tissue abnormalities. The trachea is midline. The cardiac silhouette and mediastinum are within normal limits. No pneumothorax, pleural effusions, or consolidations.
[2025-02-12] MEDS: ringers solution, lacted 1,000 ML IV ONE (16:56)
[2025-02-12] MEDS: TETanus/Pertussis (Acell)/Diphther VAC/PF (Tdap-Adult) 0.5ml syringe IMVAC ONE (16:59)
[2025-02-12 17:27] LABS: PRO BRAIN NATRIURETIC PEPTIDE 179 PG/ML (0-125)
[2025-02-12 17:33] LABS: HIV ANTIBODY 1&2 RAPID NON-REACTIVE (Neg)
[2025-02-12] MEDS: chlorhexidine gluconate 15ml Cup****oral rinse MM SCH (17:36)
[2025-02-12] MEDS: normal saline 1000ml 1,000 ML IV SCH (17:58)
[2025-02-12] MEDS ORDERED: UNABLE TO OBTAIN (18:52)
[2025-02-12 20:00] VITALS: BP 112/60; PULSE 61; RESP 14; RESP 18; TEMP 98.4; O2SAT 97
[2025-02-12] MEDS: K and/or MAG REPLACEMENT MC SCH (20:00)
[2025-02-12] MEDS: docusate sod 100mg capsule PO SCH (20:00)
[2025-02-12] MEDS: heparin, porcine 5000 units/ml vial SQ SCH (20:24)
[2025-02-12] MEDS: nystatin 500,000 unit/5ML UD oral suspension PO SCH (22:11)
[2025-02-12] MEDS: HYDROmorphone inj. 0.5 MG/0.5 ML DISP.SYRIN SQ ONE (23:10)
[2025-02-12] MEDS: famotidine/PF 10 mg/ml inj IV SCH (23:19)
[2025-02-13] VITALS (7 sets, daily range): BP systolic 107–117; BP diastolic 61–76; PULSE 52–67; RESP 13–17; TEMP 97.1–98.2; O2SAT 95–99
[2025-02-13] MEDS: HYDROcodone/acetaminophen 10/325mg tab PO PRN (02:21)
[2025-02-13 06:38] LABS: MEAN PLATELET VOLUME 7.6 FL (7.4-10.4); RED CELL DISTRIBUTION WIDTH 13.2 % (11.5-14.5)
[2025-02-13 07:06] LABS: CHOL/HDL RATIO 3.8 (0.00-4.99); CREATININE 1.07 MG/DL (0.60-1.10); LDL CHOLESTEROL 64 MG/DL (50-100); TOTAL CARBON DIOXIDE 28.0 MMOL/L (24-32); eCRCL 97 ML/MIN; eGFR 79 ML/MIN
--- NOTE | 2025-02-13 09:57 | PROGRESS NOTE ---
Daily Progress Note Providers to CC Feels better today, less swelling of the tongue, able to tolerate fluids and food ~ Central Line/PICC still needed: No Gray-Non Protocol Gray Indications Met/Not Met: F/C Indications Not Met Antibiotic Timeout Antibiotic Ordered?: Yes MRSA Education MRSA Education Provided to pt: Yes Subjective As above Objective Vital Signs Date Time Temp Pulse Resp B/P (MAP) Pulse Ox O2 Delivery O2 Flow Rate FiO2 02/13/25 06:00 97.4 55 17 112/75 (87) 98 Room Air 02/12/25 18:45 0 Vital signs, stable ,afebrile. Pulse Oximetry reflects adequate oxygenation. General: well developed, well nourished. Awake , alert, and oriented x4, resting comfortably in the bed, in no acute distress . Skin: Warm, dry, no pallor, no rash or petechiae. HEENT: Atraumatic, normocephalic, EOMI, anicteric sclera B; pink conjunctiva; PERRLA, normal oropharynx, moist oral and nasal mucosa. Tympanic membrane , nose , throat clear. Neck: Trachea midline. Supple, full range of motion, no JVD, bruit , hepatojugular reflex , lymphadenopathy or masses, or other lesions Cardiac: Regular rhythm, regular rate no murmurs, rubs, or gallops. Normal S1 and S2, no S3 noticed. PMI is normal. Respiratory: Equal breath sounds bilaterally, no tachypnea; lungs clear to auscultation bilaterally, no wheezing ,rub or rales, or crackles. Chest wall is symmetric and without deformity. No signs of trauma. Chest wall is nontender. No signs of respiratory distress. Resonance is normal upon percussion bilaterally. Gastrointestinal: Abdomen symmetric, non-distended, soft, non-tender, normal bowel sounds x4 quadrant, normoactive, no hepatosplenomegaly , no masses , no bruit, no flank pain bilaterally. No voluntary guarding, rebound, or rigidity. No tenderness to percussion. No pulsatile masses. Equal femoral pulses. No Huff's sign or McBurney point tenderness. Back; no CVA tenderness bilaterally, no deformities. Neck and back are without deformity as well. No tenderness noted on palpation of the spinous processes. Spinous processes are midline. Cervical, thoracic, and lumbar paraspinal muscles are not tender and are without spasm. : normal external genitalia, without lesions, swelling, masses or tenderness. Musculoskeletal: Extremities, normal range of motion, non-tender, muscle strength 5/5 x 4. Negative Homans signs bilaterally on lower extremity. Distal pulses full symmetrical, no clubbing, cyanosis , edema. Neurological: Speech is clear, alert, and oriented x 4. No motor or sensory deficit, deep tendon reflexes normal, cerebellar intact. Cranial nerves II-XII intact. Psych: Alert and or appropriate, normal affect. Vascular: Good distal pulses, which are equal x4; capillary refill less than 2 seconds. Lymphatic, no lymphadenopathy. Result Diagram: 02/13/25 0602/13/25 0607 Coagulation Studies Laboratory Tests Test 02/12/25 12:02 Prothrombin Time 11.9 SECONDS (9.0-12.0) INR International Normalized Ratio 1.2 INR Activated Partial Thromboplast Time 28 SECONDS (22-32) Coagulation Comments Problem\Assessment\Plan Assessment Chronic amphetamine abuse including currently Acute amphetamine intoxication Acute posttraumatic glossitis Acute pharyngitis Oral candidiasis [place] tonsillitis Anterior neck cervical lymphadenopathy Sepsis Anemia hemoglobin 11.9 Hyponatremia Additional comorbidities, history of seizure, GERD, rhabdomyolysis, [place], polysubstance abuse methamphetamine opioids, hepatitis, syncope, cholelithiasis, gastritis Plan IV fluids, steroids, antibiotics Pepcid IV IV Benadryl Epinephrine subQ x1 dose Oral rinse with antiseptics TD updated Correct electrolytes Additional lab work pending Substance abuse navigator consult Reconciled home medications DVT gastropathy prophylaxis addressed Sepsis Screening Reassessment Date: Feb 13, 2025 Date of Service: Feb 13, 2025 Billing Provider: LUMA SHOEMAKER MD Common Visit Codes: [id number] INP/OBS CARE(HIGH) LUMA SHOEMAKER MD Feb 13, 2025 09:57
[2025-02-13] MEDS ORDERED: DULO60CA65 PO (17:51)
[2025-02-13] MEDS ORDERED: LEVO25TA2 PO (17:51)
[2025-02-13] MEDS: mag & alum hydrox/simeth susp 40 ML, diphenhydrAMINE oral solution 100 MG, LIDOcaine 2%... PO PRN (20:55)
[2025-02-14] MEDS: HYDROcodone/acetaminophen 5mg/325mg tablet PO PRN (01:32)
[2025-02-14 02:00] VITALS: BP 120/80; PULSE 55; RESP 14; TEMP 97.7; O2SAT 98
[2025-02-14 06:00] VITALS: BP 139/80; PULSE 52; RESP 15; TEMP 97.3; O2SAT 99
[2025-02-14 06:21] LABS: MEAN PLATELET VOLUME 8.3 FL (7.4-10.4); RED CELL DISTRIBUTION WIDTH 13.9 % (11.5-14.5)
[2025-02-14 06:43] LABS: CREATININE 0.90 MG/DL (0.60-1.10); TOTAL CARBON DIOXIDE 28.1 MMOL/L (24-32); eCRCL 116 ML/MIN; eGFR > 90 ML/MIN
[2025-02-14 08:00] VITALS: RESP 16; O2SAT 94
[2025-02-14] MEDS: levoTHYROXINE 25mcg tablet PO SCH (08:18)
[2025-02-14] MEDS: duloxetine 30mg CAPSULE.DR PO SCH (08:18)
[2025-02-14] MEDS ORDERED: PENI-88 PO (10:39)
[2025-02-14] MEDS ORDERED: FAMO40TA73 PO (10:39)
[2025-02-14] MEDS ORDERED: HYDR50TA65 PO (10:39)
[2025-02-14] MEDS ORDERED: LIDO15SO9 PO (10:55)
[2025-02-14 11:00] VITALS: BP 123/86; PULSE 47; RESP 17; TEMP 97; O2SAT 98
--- NOTE | 2025-02-14 15:03 | DISCHARGE SUMMARY ---
Discharge Summary Providers to CC ~ no new complaint today, feels fine, ready to be discharged home Discharge Summary Assessment Assessment Chronic amphetamine abuse including currently Acute amphetamine intoxication Acute posttraumatic glossitis Oral candidiasis [place] tonsillitis Anterior neck cervical lymphadenopathy Sepsis Anemia hemoglobin 11.9 Hyponatremia Additional comorbidities, history of seizure, GERD, rhabdomyolysis, AR, polysubstance abuse methamphetamine opioids, hepatitis, syncope, cholelithiasis, gastritis Admission Diagnosis: Sepsis Admission Diagnosis Comment: Assessment Chronic amphetamine abuse including currently Acute amphetamine intoxication Acute posttraumatic glossitis Oral candidiasis [place] tonsillitis Anterior neck cervical lymphadenopathy Sepsis Anemia hemoglobin 11.9 Hyponatremia Additional comorbidities, history of seizure, GERD, rhabdomyolysis, AR, polysubstance abuse methamphetamine opioids, hepatitis, syncope, cholelithiasis, gastritis Hospital Course DATE OF ADMISSION: February 12, 2025 DATE OF DISCHARGE: February 14, 2025 Discharge Diagnosis\Comment: Assessment Chronic amphetamine abuse including currently Acute amphetamine intoxication Acute posttraumatic glossitis Oral candidiasis [place] tonsillitis Anterior neck cervical lymphadenopathy Sepsis Anemia hemoglobin 11.9 Hyponatremia Additional comorbidities, history of seizure, GERD, rhabdomyolysis, AR, polysubstance abuse methamphetamine opioids, hepatitis, syncope, cholelithiasis, gastritis Operations\Procedures: Non Consultants: Non Complications: Non Condition on DC: Stable Discharge Summary: This is a 34 years old white male with history of multiple medical problems including chronic amphetamine abuse including currently, history of polysubstance abuse amphetamine opioids, history of hepatitis syncope, gastritis, cholelithiasis, history of AR, GERD, seizure disorder, anemia hemoglobin 11.9, presented today to emergency department chief complaint tongue swelling associated with sharp pain radiated in the back of the neck, started two days ago after apparently patient bit his tongue, has gotten worse today associated with fever and palpitation that is why patient elected to address this problem to emergency department, in emergency department he was evaluated b y medical provider, was diagnosed with sepsis, acute posttraumatic glossitis, started on IV antibiotics, and decision was made to admit patient for further evaluation and treatment. No additional complaint or concern. After admission patient was extensively evaluated and treated, today he feels fine has no complaint asking to be discharged home, he will be discharged in stable co ndition, medication reconciled, follow-up PCP in the morning, return to emergency department if condition worsens, today on physical exam Vital signs, stable ,afebrile. Pulse Oximetry reflects adequate oxygenation. General: well developed, well nourished. Awake , alert, and oriented x4, resting comfortably in the bed, in no acute distress . Skin: Warm, dry, no pallor, no rash or petechiae. HEENT: Atraumatic, normocephalic, EOMI, anicteric sclera B; pink conjunctiva; PERRLA, normal oropharynx, moist oral and nasal mucosa. Tympanic membrane , nose , throat clear. Neck: Trachea midline. Supple, full range of motion, no JVD, bruit , hepatojugular reflex , lymphadenopathy or masses, or other lesions Cardiac: Regular rhythm, regular rate no murmurs, rubs, or gallops. Normal S1 and S2, no S3 noticed. PMI is normal. Respiratory: Equal breath sounds bilaterally, no tachypnea; lungs clear to auscultation bilaterally, no wheezing ,rub or rales, or crackles. Chest wall is symmetric and without deformity. No signs of trauma. Chest wall is nontender. No signs of respiratory distress. Resonance is normal upon percussion bilate rally. Gastrointestinal: Abdomen symmetric, non-distended, soft, non-tender, normal bowel sounds x4 quadrant, normoactive, no hepatosplenomegaly , no masses , no bruit, no flank pain bilaterally. No voluntary guarding, rebound, or rigidity. No tenderness to percussion. No pulsatile masses. Equal femoral pulses. No Huff's sign or McBurney point tenderness. Back; no CVA tenderness bilaterally, no deformities. Neck and back are without deformity as well. No tenderness noted on palpation of the spinous processes. Spinous processes are midline. Cervical, thoracic, and lumbar paraspinal muscles are not tender and are without spasm. : normal external genitalia, without lesions, swelling, masses or tenderness. Musculoskeletal: Extremities, normal range of motion, non-tender, muscle strength 5/5 x 4. Negative Homans signs bilaterally on lower extremity. Distal pulses full symmetrical, no clubbing, cyanosis , edema. Neurological: Speech is clear, alert, and oriented x 4. No motor or sensory deficit, deep tendon reflexes normal, cerebellar intact. Cranial nerves II-XII intact. Psych: Alert and or appropriate, normal affect. Vascular: Good distal pulses, which are equal x4; capillary refill less than 2 seconds. Lymphatic, no lymphadenopathy. *Problems/Diagnosis: (1) Polydrug abuse Status: Acute Total Time Spent on D/C: > 30 Minutes Date of Service: Feb 14, 2025 Billing Provider: LUMA SHOEMAKER MD Common Visit Codes: 50821-UKW/OBS DISCH DAY >30min LUMA SHOEMAKER MD Feb 14, 2025 15:03
[2025-02-15 15:09] LABS: HBSAG SCREEN Negative (Negative); HEP B CORE AB, IGM Negative (Negative); HEP B CORE AB, TOT Negative (Negative)
== END 2025-02-14 12:33 | disposition home or self-care (01) | DRG 720 ==
LOC: ER 11:09 → ED HOLD 15:24 → PCU 3S 19:24
PROVIDERS: ADMIT Family Medicine; ATTEND Family Medicine
PROC: BW2F1ZZ Computerized Tomography (CT Scan) of Neck using Low Osmolar Contrast (ICD-10-PCS; principal; 2025-02-12)
DX: A41.9 Sepsis, unspecified organism (principal); B37.0 Candidal stomatitis; E87.1 Hypo-osmolality and hyponatremia; E78.5 Hyperlipidemia, unspecified; D64.9 Anemia, unspecified; F15.129 Other stimulant abuse with intoxication, unspecified; G40.909 Epilepsy, unspecified, not intractable, without status epilepticus; J03.90 Acute tonsillitis, unspecified; K14.0 Glossitis; R59.0 Localized enlarged lymph nodes; Z79.899 Other long term (current) drug therapy; I25.2 Old myocardial infarction
CPT/HCPCS: 36415; 70491; 71045; 80053; 80061; 82550; 83036; 83605; 83690; 83735; 83880; 84100; 84443; 85025; 85610; 85730; 86703; 86704; 86705; 87040; 87077; 87081; 87186; 87340; 87880; 90715; 96365; 96367; 96375; 99285; A4615; G0378; J0131; J0169; J1171; J1200; J1644; J2270; J2919; J3490; J7030; J7120; Q9967

== ENCOUNTER 2025-05-01 22:35 | Inpatient (IN) | payer MEDICAID ==
[~2025-05-01] VITALS: Ht 177.8 cm; Wt 93.2 kg
[~2025-05-01 22:35] MED LIST changes: +DULO60CA65 PO; +FAMO40TA73 PO; +HYDR50TA65 PO; +LEVO25TA2 PO; +LIDO15SO9 PO; -NO HOME MEDS; -ONDA-245 PO; -PANT-47 PO; +UNABLE TO OBTAIN
[2025-05-01 23:22] LABS: MEAN PLATELET VOLUME 8.0 FL (7.4-10.4); RED CELL DISTRIBUTION WIDTH 13.3 % (11.5-14.5)
--- NOTE | 2025-05-01 23:34 | Physician Documentation ---
History of Present Illness General Chief Complaint: Abdominal Pain Stated Complaint: ABD PAIN Time Seen by MD: 23:33 Mode of Arrival: EMS, Stretcher History of Present Illness Initial Comments Patient is a 34-year-old male complains of right lower abdominal pain. Patient states he has had abdominal pain for last three days eats been gradually worsening. Patient states he woke up proximally an hour prior to arrival with significant worsening of his right-sided abdominal pain. It states it hurts when he breathes he states it hurts when he moves or when he walks. He states his pain is 10/10. It improves when he is laying still. Patient denies any fevers. Patient denies any nausea vomiting or diarrhea pain. Patient's symptoms are moderate and persistent. Patient does admit to methamphetamine use he states he might have used last yesterday. Medication Reconciliation Allergies: Coded Allergies: No Known Allergies (Unverified , 01/26/22) Miscellaneous Medications Home Med List (No Home Medications), (Reported) Discontinued Medications Duloxetine HCl (Duloxetine HCl), 1 CAP PO DAILY, (Reported) Discontinued Reason: patient no longer taking Famotidine (Pepcid), 1 TAB PO DAILY Discontinued Reason: patient no longer taking Hydroxyzine HCl (Hydroxyzine HCl), 1 TAB PO Q12H Discontinued Reason: patient no longer taking Lidocaine HCl (Lidocaine HCl Viscous), 5 ML PO Q8H Discontinued Reason: patient no longer taking Unable to Obtain Medications (Unable to Obtain Medications), (Reported) Discontinued Reason: patient no longer taking levothyroxine sodium* (Synthroid*), 2 TAB PO DAILY, (Reported) Discontinued Reason: patient no longer taking Past Medical History Past Medical History: Seizures Past Surgical History: noncontributory Drug Use: methamphetamine Lives with: Alone Lives In: Home Review of Systems All Other Systems at this time: Reviewed and Negative Physical Exam Physical Exam Vital Signs: Temperature: 98.6, Source: Oral, Heart Rate: 87, Respiratory Rate: 16, BP: 134/92, Pulse Oximetry: 97, Weight: 93.180 Oxygen Flow Rate: 0 Physical Exam VITALS: Reviewed and as above. GENERAL: Alert, no apparent distress. HEENT: Normocephalic, atraumatic, PERRL, EOMI, dry mucosa, no erythema RESPIRATORY: Lungs clear, normal breath sounds, no respiratory distress. CHEST: No accessory muscle use, no retractions CV: Regular rate, rhythm, no edema, no murmur, No: JVD GI: Soft, tender right lower quadrant with some voluntary guarding. BACK: No CVA tenderness, or swelling MUSCULOSKELETAL: No deformities, no edema SKIN: Warm and dry, no rash NEURO: Oriented x4, No motor or sensory deficit PSYCH: Normal mood and affect, no agitation Progress Results/Orders Results/Orders Orders - WILMAN STRE[address] MD Ct Abdomen Pelvis (05/01/25 23:50) Ultrasound Of Abdomen (05/02/25 00:13) Page Hospitalist (05/02/25 00:35) Fill Out Med Reconciliation (05/02/25 00:35) Completed Orders - WILMAN STRE[address] MD Urinalysis, Cult If Indicated (05/01/25 22:47) Cbc/Diff (05/01/25 22:47) BMP (05/01/25 22:47) Lipase (05/01/25 22:47) CMP (05/01/25 22:47) Procalcitonin (05/01/25 23:38) Ct Abdomen Pelvis (05/01/25 23:50) Normal Saline 1000ml (0.9% Sodium Chlori (05/01/25 23:45) Ketorolac Trometh 15mg/Ml Vial (Toradol (05/01/25 23:45) Acetaminophen 1,000mg/100ml Iv (Ofirmev (05/01/25 23:45) Morphine 10mg/Ml Inj. (Morphine Inj.) (05/02/25 00:15) Piperacillin/Tazo 3.375gm/50ml (Zosyn 3. (05/02/25 00:15) Ultrasound Of Abdomen (05/02/25 00:13) Vital Signs 05/01/25 05/01/25 05/01/25 05/02/25 22:42 22:55 23:34 00:38 Temp 98.6 98.6 Pulse 87 75 83 Resp 15 16 16 18 B/P (MAP) 134/92 133/82 (99) 131/88 (102) Pulse Ox 97 100 97 O2 Flow Rate 0 0 0 05/02/25 05/02/25 05/02/25 05/02/25 01:03 01:19 01:19 02:02 Pulse 75 80 Resp 16 16 16 16 B/P (MAP) 131/78 (95) 127/72 (90) Pulse Ox 98 98 O2 Flow Rate 0 0 Laboratory Tests Test 05/01/25 22:50 White Blood Count 11.4 H Red Blood Count 4.41 L Hemoglobin 13.7 L Hematocrit 41.0 L Mean Corpuscular Volume 93.0 Mean Corpuscular Hemoglobin 31.1 H Mean Corpuscular Hemoglobin Concent 33.4 Red Cell Distribution Width 13.3 Platelet Count 224 Mean Platelet Volume 8.0 Neutrophils (%) (Auto) 73.1 Lymphocytes (%) (Auto) 15.9 L Monocytes (%) (Auto) 10.5 Eosinophils (%) (Auto) 0.2 Basophils (%) (Auto) 0.3 Neutrophils # (Auto) 8.3 H Lymphocytes # (Auto) 1.8 Monocytes # (Auto) 1.2 H Eosinophils # (Auto) 0.0 Basophils # (Auto) 0.0 CBC Comment Sodium Level 133 L Potassium Level 4.5 Chloride Level 101 Carbon Dioxide Level 26.0 Anion Gap 6 L Blood Urea Nitrogen 12 Creatinine 0.87 Estimated GFR/1.73 m2 > 90 BUN/Creatinine Ratio 13.8 Glucose Level 98 Calcium Level 8.1 L Total Bilirubin 1.2 H Aspartate Amino Transf (AST/SGOT) 32 Alanine Aminotransferase (ALT/SGPT) 23 Alkaline Phosphatase 148 H Total Protein 8.0 Albumin 3.5 Globulin 4.5 H Albumin/Globulin Ratio 0.8 L Lipase 100 H Procalcitonin < 0.05 Chemistry Comments EKG/XRAY/CT/US/VASC/MRI CT : Impression Patient: RACHELLE BEASLEY Medical Record: [id number] [facility] : 1990, Age: 34 Sex: Male Location: ER Patient Status: REG ER Service Date/Time: 05/01/252349 Ordering Physician: WILMAN STREET MD Exam: CT ABDOMEN PELVIS Exam: CT CT ABDOMEN PELVIS History: abd pain COMPARISON: CT ABDOMEN PELVIS on DOS: 01/26/22, CTA CHEST CT ABD PELVIS on DOS: 10/10/21, ULTRASOUND OF ABDOMEN on DOS: 10/10/21, CT ABDOMEN PELVIS on DOS: 10/10/21 Technique: Multidetector spiral CT of the abdomen and pelvis was performed from lung bases to pubic symphysis. Axial, coronal and sagittal multiplanar reformats were performed by the technologist on a separate workstation. Radiation Dose : 1. Abdomen/Pelvis: CTDIvol 12.13 mGy, DLP 606.41 mGy*cm. Findings: Lung Bases: No acute or significant lung base finding. Normal heart size. No pleural or pericardial effusion. Liver: The liver is normal in size. No focal lesions. Normal hepatic vascular enhancement. Gallbladder and Biliary Tree: Gallbladder is distended and contains multiple stones. Wall appears thickened. Spleen: Unremarkable Pancreas: The pancreas is normal in appearance without focal lesions or abnormal enhancement. Adrenal Glands: Unremarkable Kidneys: No hydronephrosis. Bladder: Unremarkable Bowel: The stomach is grossly normal in appearance. Small bowel and colon are normal in caliber and distribution. Normal appendix is visualized in the right lower quadrant without findings of appendicitis. Ascites: Trace pelvic fluid. Lymphadenopathy: No mesenteric, retroperitoneal or periportal lymphadenopathy. Abdominal Wall and Mesentery: Unremarkable. Vasculature: The visualized abdominal aorta is normal in size and caliber. Abdominal and pelvic vessels demonstrate normal enhancement. Pelvic Organs: Unremarkable Musculoskeletal: No aggressive focal bony lesions, acute fractures or dislocation. IMPRESSION: Gallstones with gallbladder distension and probable wall thickening. Please correlate with any symptoms of acute cholecystitis and consider ultrasound. Radiation optimization: All CT scans at this facility use at least one of these dose optimization techniques: automated exposure control mA and/or kV adjustment per patient size (includes targeted exams where dose is matched to clinical indication) or iterative reconstruction. Electronically Signed by:BRANDYN MORA MD Date & Time: 05/02/2525 Dictated by: BRANDYN MORA MD Dictation date and time: 05/02/2525 Primary Care Provider: NO PRIMARY CARE PROVIDER cc: WILMAN ST[address] MD ~ Ultrasound : Impression Patient: RACHELLE BEASLEY Medical Record: [id number] [facility] : 1990, Age: 34 Sex: Male Location: ER Patient Status: REG ER Service Date/Time: 05/02/2512 Ordering Physician: WILMAN STREET MD Exam: ULTRASOUND OF ABDOMEN INDICATION: abdominal pain TECHNIQUE: Multiple real-time sonographic images of the abdomen were obtained. COMPARISON: CT CT ABDOMEN PELVIS on DOS: 05/01/25, CT ABDOMEN PELVIS on DOS: 01/26/22, ULTRASOUND OF ABDOMEN on DOS: 10/10/21, CT ABDOMEN PELVIS on DOS: 10/10/21 FINDINGS: Liver is homogenous in echogenicity. The liver measures 18.6 cm. No intrahepatic biliary ductal dilatation is noted. Few gallstones in the gallbladder. Gallbladder appears distended. No gallstones or gallbladder sludge. Suspect mild surrounding edema. The common duct measures 0.4 cm and is unremarkable. The right kidney measures 11.2 cm. No hydronephrosis. IMPRESSION: Gallstones with gallbladder wall thickening. Gallbladder also appears distended. This likely represents acute cholecystitis. Electronically Signed by:BRANDYN MORA MD Date & Time: 05/02/25140 Dictated by: BRANDYN MORA MD Dictation date and time: 05/02/25140 Primary Care Provider: NO PRIMARY CARE PROVIDER cc: WILMAN [address] MD ~ Medical Decision Making Additional information obtaine: old records Findings 34-year-old male with a history of methamphetamine abuse presents with three days of abdominal pain patient had pre and present tenderness to the right side of his abdomen CT imaging shows an inflamed enlarged gallbladder, the patient was given narcotic pain medication as well as IV fluids and antibiotics. The patient's ultrasound as well as a CT imaging were reviewed by myself. The case has been discussed with the surgeon. The patient has also been discussed with the hospitalist. The patient's pulse oximetry was interpreted as normal and adequate. The patient will be admitted for cholecystitis Differential Diagnosis Cholecystitis diverticulitis appendicitis Departure Admitted to Inpatient Unit: yes, to hospitalist Impression: Primary Impression: Acute cholecystitis Referrals: NO PRIMARY CARE PROVIDER (PCP) Signature Scribe Signature: no scribe Attestation: The note accurately reflects work and decisions made by me.Wilman Street MD 05/04/25 07:[address] MD May 01, 2025 23:34
[2025-05-01 23:59] LABS: CREATININE 0.87 MG/DL (0.60-1.10); TOTAL CARBON DIOXIDE 26.0 MMOL/L (24-32); eCRCL 124 ML/MIN; eGFR > 90 ML/MIN
[2025-05-02] VITALS (20 sets, daily range): BP systolic 116–139; BP diastolic 61–87; PULSE 72–108; RESP 14–22; TEMP 98–99; O2SAT 92–100
[2025-05-02] MEDS: ketorolac trometh 15mg/ml vial 15 MG/ML ML IV ONE (00:19)
[2025-05-02] MEDS: morphine 10mg/ml inj. IV ONE (00:19)
[2025-05-02] MEDS: piperacillin/tazo 3.375gm/50ml 50 ML IV ONE (00:19)
[2025-05-02] MEDS: normal saline 1000ML IV soln IVB ONE (00:20)
[2025-05-02] MEDS: acetaminophen 1,000mg/100ml IV 100 ML IV ONE (00:20)
--- NOTE | 2025-05-02 00:29 | RADIOLOGY REPORT ---
Exam: CT CT ABDOMEN PELVIS History: abd pain COMPARISON: CT ABDOMEN PELVIS on DOS: 01/26/22, CTA CHEST CT ABD PELVIS on DOS: 10/10/21, ULTRASOUND OF ABDOMEN on DOS: 10/10/21, CT ABDOMEN PELVIS on DOS: 10/10/21 Technique: Multidetector spiral CT of the abdomen and pelvis was performed from lung bases to pubic symphysis. Axial, coronal and sagittal multiplanar reformats were performed by the technologist on a separate workstation. Radiation Dose : 1. Abdomen/Pelvis: CTDIvol 12.13 mGy, DLP 606.41 mGy*cm. Findings: Lung Bases: No acute or significant lung base finding. Normal heart size. No pleural or pericardial effusion. Liver: The liver is normal in size. No focal lesions. Normal hepatic vascular enhancement. Gallbladder and Biliary Tree: Gallbladder is distended and contains multiple stones. Wall appears thickened. Spleen: Unremarkable Pancreas: The pancreas is normal in appearance without focal lesions or abnormal enhancement. Adrenal Glands: Unremarkable Kidneys: No hydronephrosis. Bladder: Unremarkable Bowel: The stomach is grossly normal in appearance. Small bowel and colon are normal in caliber and distribution. Normal appendix is visualized in the right lower quadrant without findings of appendicitis. Ascites: Trace pelvic fluid. Lymphadenopathy: No mesenteric, retroperitoneal or periportal lymphadenopathy. Abdominal Wall and Mesentery: Unremarkable. Vasculature: The visualized abdominal aorta is normal in size and caliber. Abdominal and pelvic vessels demonstrate normal enhancement. Pelvic Organs: Unremarkable Musculoskeletal: No aggressive focal bony lesions, acute fractures or dislocation. IMPRESSION: Gallstones with gallbladder distension and probable wall thickening. Please correlate with any symptoms of acute cholecystitis and consider ultrasound. Radiation optimization: All CT scans at this facility use at least one of these dose optimization techniques: automated exposure control mA and/or kV adjustment per patient size (includes targeted exams where dose is matched to clinical indication) or iterative reconstruction.
[2025-05-02] MEDS ORDERED: NO HOME MEDS (01:02)
--- NOTE | 2025-05-02 01:44 | RADIOLOGY REPORT ---
INDICATION: abdominal pain TECHNIQUE: Multiple real-time sonographic images of the abdomen were obtained. COMPARISON: CT CT ABDOMEN PELVIS on DOS: 05/01/25, CT ABDOMEN PELVIS on DOS: 01/26/22, ULTRASOUND OF ABDOMEN on DOS: 10/10/21, CT ABDOMEN PELVIS on DOS: 10/10/21 FINDINGS: Liver is homogenous in echogenicity. The liver measures 18.6 cm. No intrahepatic biliary ductal dilatation is noted. Few gallstones in the gallbladder. Gallbladder appears distended. No gallstones or gallbladder sludge. Suspect mild surrounding edema. The common duct measures 0.4 cm and is unremarkable. The right kidney measures 11.2 cm. No hydronephrosis. IMPRESSION: Gallstones with gallbladder wall thickening. Gallbladder also appears distended. This likely represents acute cholecystitis.
[2025-05-02] MEDS ORDERED: magnesium sulf-water 2g/50mL 50 ML IV PRN (01:55)
[2025-05-02] MEDS ORDERED: potassium Cl 20 mEq SR tablet PO PRN ×2 (01:55)
[2025-05-02] MEDS ORDERED: magnesium Cl slow-release 64mg tablet PO PRN (01:55)
[2025-05-02] MEDS ORDERED: potassium Cl 40MEQ/1/2NS 520ml 520 ML IV PRN (01:55)
[2025-05-02] MEDS ORDERED: ondansetron/PF 4mg/2ml inj IV PRN ×3 (01:55→14:05)
[2025-05-02] MEDS ORDERED: magnesium sulf-water 4G/100mL 100 ML IV PRN (01:55)
[2025-05-02] MEDS ORDERED: mag hydrox/Alum hydrox/simeth 30ml oral suspension PO PRN (01:55)
[2025-05-02] MEDS ORDERED: magnesium hydroxide 30ml (MOM) UD suspension PO PRN (01:55)
--- NOTE | 2025-05-02 02:30 | HISTORY AND PHYSICAL-Residence ---
History & Physical Providers to CC Resident Creating Document: GOCHALO RES ~ History of Present Illness Reason for Admit\Complaint: Abdominal pain History of Present Illness 34-year-old male with history of cholelithiasis, gastritis, GERD, seizure disorder, history of hepatitis and meth use came to the ED with complaints of abdominal pain. He states that he has had abdominal pain for the past 3 days and has been gradually worsening when he eats. He states that he initially got a central chest pain and then right lower quadrant pain which worsens when taking deep breath or moving or talking and improves when lying still. He states that he woke up an hour prior to arrival with significant worsening of his right-sided abdominal pain. He denies taking fatty foods. His severity of pain was 10/10, which has reduced after the pain meds in the ED. He denies fever, chills. He reports having nausea and dry heaves and denied vomiting, recent travel, sick contacts. Allergies: Coded Allergies: No Known Allergies (Unverified , 01/26/22) Home Medications Home Medications Active Reported No Home Medications (Home Med List) Each Past Medical History Past Medical History Cholelithiasis Gastritis GERD Seizure disorder History of hepatitis Meth use [place] Past Surgical History Surgical History Comment Unable to obtain surgical history as patient was drowsy and unable to tell Family History Family History: FH: cancer Substance abuse Past Social History Social History Comment He uses methamphetamine for the past 20 years, and he states that he might have used last yesterday He denies smoking cigarettes and drinking alcohol Drug Use: Methamphetamine Lives with: Alone Lives In: Home ROS All Other Systems: Reviewed and Negative ROS Constitutional: No fever, chills, dizziness, weight gain or loss Eyes: No pain, erythema, discharge, blurring of vision ENT: No sore throat, epistaxis, tinnitus Cardiovascular: Reports central chest pain, No palpitations, syncope, lower extremity edema, paroxysmal nocturnal dyspnea Respiratory: No Shortness of breath and cough, No hemoptysis. Gastrointestinal: Reports Abdominal pain, nausea, No nausea, constipation,diarrhea. Normal appetite. No hematemesis or melena. Musculoskeletal: No Swelling, pain in bilateral lower legs. Integumentary: No change in skin, hair, nails. No swelling, bruising, abrasions Neurologic: No weakness,No headache, neck pain, numbness or tingling of the extremities, Psychiatric: No delusions, depression, loss of interest in normal activity or change in sleep pattern, hallucinations, suicidal ideations Endocrine: No fatigue, no weakness. polydipsia, polyuria, change in appetite, heat or cold intolerance, sweating, dry skin Hematological: No bleeding, petechiae, bruising Allergies: No asthma or urticaria Exam Vitals: Vital Signs Date Time Temp Pulse Resp B/P (MAP) Pulse Ox O2 Delivery O2 Flow Rate FiO2 05/02/25 02:02 80 16 127/72 (90) 98 0 05/02/25 00:38 98.6 General: Awake , alert, and oriented x4, resting in the bed, in mild distress HEENT: Atraumatic, normocephalic, EOMI, anicteric sclera ; pink conjunctiva, dry mucous membranes Neck: Trachea midline. Supple, full range of motion, no JVD Cardiac: Regular rhythm, regular rate with no murmurs all over the precordium. Respiratory: Equal breath sounds bilaterally, no tachypnea, no wheezing ,rub or rales, Chest wall is symmetric and without deformity. Gastrointestinal: Abdomen non-distended, soft, tender right lower quadrant with voluntary guarding, normal bowel sounds, Huff's sign positive Musculoskeletal: No pedal edema, no cyanosis Neurological: Speech is clear, alert, and oriented x 4. No motor or sensory deficit Skin: Warm and dry Diagnostic Data Last Recorded Lab Results: 05/01/25224905/01/252249 Advance Care Planning Advanced Care plannin - 30 Minutes (Full code) Additional Plan Abdominal pain 2/2 Acute cholecystitis History of cholelithiasis Vitals are stable Leukocytosis, WBC-11.4 Total bilirubin is elevated 1.2 Alkaline phosphatase is elevated 148 AST and ALT are normal Lipase is mildly elevated 100 Procalcitonin is normal Abdominal ultrasound shows gallstones with gallbladder wall thickening, distended gallbladder, suspect mild surrounding edema and common duct measures 0.4 cm and is unremarkable Abdomen/pelvis CT shows gallstones with gallbladder distention and probable wall thickening Plan: Patient is on NPO 1 L NS bolus was given in the ER Started IV NS 120 mL/hour Started on IV Zosyn 3.375 g Q8H Pain is controlled by morphine 1 mg/2 mg p.r.n. for moderate and severe pain respectively Dr. Andre, surgeon was consulted and he will be seeing the patient in the morning Hyponatremia Sodium is 133 Glucose is normal-98 Hyperglobulinemia- 4.5, most probably pseudohyponatremia due to elevated globulins Started IV NS 120 mL/hour Monitor BMP History of hepatitis Methamphetamine abuse financial services internship and substance use navigator consulted Follow up urine tox screen History of seizure disorder Patient does not take any home medications Seizure precautions in place I spent a total of 18 minutes reviewing various resuscitative measures/ACP with the patient. The patient decided to be full code. Code status: Full code DVT prophylaxis: SCD Pain management: Morphine 1 mg/2 mg Diet/nutrition: NPO now Prognosis: Guarded Disposition: Continue pain management, fluids and IV Zosyn, Dr. Andre was consulted and he will be seeing the patient in the a.m. Resident MD attestation: The patient note has been reviewed and supervised by senior residents PGY-2/ PGY-3. Patient was seen, examined and discussed with attending physician. Chalo Galdamez MD Internal Medicine resident, PGY-1 Patient was evaluated using HIPPA complaint AV device Agree with plan as discussed with the resident. Thiago Love MD Date of Service: May 02, 2025 Billing Provider: THIAGO LOVE MD, PREETHI, MAI May 02, 2025 02:30 THIAGO LOVE MD May 02, 2025 03:22
[2025-05-02] MEDS: normal saline 1000ml 1,000 ML IV SCH (02:47)
[2025-05-02 03:16] LABS: APTT 28 SECONDS (22-32); INR 1.0 INR
[2025-05-02 03:31] LABS: PHOSPHORUS 4.1 MG/DL (2.3-4.5)
[2025-05-02] MEDS: morphine 4 MG/ML inj SYRINge IV PRN (07:49)
[2025-05-02] MEDS: piperacillin/tazo 3.375gm/50ml 50 ML IV SCH ×2 (07:54→16:29)
[2025-05-02] MEDS: K and/or MAG REPLACEMENT MC SCH (08:00)
[2025-05-02] MEDS: docusate sod 100mg capsule PO SCH (08:00)
[2025-05-02 08:34] LABS: LEUKOCYTE ESTERASE ,URINE NEGATIVE (Neg); NITRITES, URINE NEGATIVE (Neg); OCCULT BLOOD,URINE NEGATIVE (Neg)
[2025-05-02 08:38] LABS: UA COLLECTION TYPE CLN CATCH MIDSTREAM
[2025-05-02 08:57] LABS: URINE AMPHETAMINE SCREEN POSITIVE (Neg); URINE BARBITUATE SCREEN NEGATIVE (Neg); URINE BENZODIAZEPINES SCREEN NEGATIVE (Neg); URINE CANNABINOID SCREEN NEGATIVE (Neg); URINE COCAINE SCREEN NEGATIVE (Neg); URINE METHADONE SCREEN NEGATIVE (Neg); URINE OPIATE SCREEN POSITIVE (Neg); URINE PHENCYCLIDINE SCREEN NEGATIVE (Neg)
[2025-05-02] MEDS ORDERED: BUPIVAcaine 2.5mg/ml inj 50ml vial (contains preservative) ONE (11:48)
[2025-05-02] MEDS ORDERED: morphine 4 MG/ML inj SYRINge IV PRN ×2 (11:55)
[2025-05-02] MEDS ORDERED: hydrALAZINE 20mg/ml inj. IV PRN (11:55)
[2025-05-02] MEDS ORDERED: labetalol 20mg/4ml (5mg/ml) syringe IV PRN (11:55)
[2025-05-02] MEDS ORDERED: HYDROmorphone/PF 0.2 MG/ML SYRINGE IV PRN (11:55)
[2025-05-02] MEDS: ringers solution, lacted 1,000 ML IV SCH (11:55)
[2025-05-02] MEDS ORDERED: piperacillin/tazo 3.375gm/50ml 50 ML IV SCH (12:13)
--- NOTE | 2025-05-02 12:14 | PROGRESS NOTE ---
Progress Note ID Providers to CC ~ Progress Note Progress Note: pt seen and examined-needs amilcar zuniga-possible open-discussed procedure including risks/benefits/alternatives DONALD GERMAIN MD May 02, 2025 12:14
[2025-05-02] MEDS ORDERED: midazolam 1 mg/ML 2ml injection ONE ×2 (12:21→13:46)
[2025-05-02] MEDS ORDERED: fentaNYL /PF 50mcg/ml 5ml ampule ONE (12:40)
[2025-05-02] MEDS ORDERED: dexamethasone sod phosphate 4mg/ml inj. ONE (12:40)
[2025-05-02] MEDS ORDERED: LIDOcaine 2% (20mg/ml) 5ml vial ONE (12:41)
[2025-05-02] MEDS ORDERED: ondansetron/PF 4mg/2ml inj ONE (12:41)
[2025-05-02] MEDS ORDERED: rocuronium 10mg/ml inj IV ONE (12:41)
[2025-05-02] MEDS ORDERED: propofol inj 20 ML IV ONE (12:41)
[2025-05-02] MEDS ORDERED: glycopyrrolate 0.2mg/ml inj ONE (13:44)
--- NOTE | 2025-05-02 14:00 | OPERATIVE REPORT ---
Operative Report Providers to CC ~ Date of Procedure: May 02, 2025 Pre-Operative Diagnosis: Acute cholecystitis Post-Operative Diagnosis SAME as PRE-Op Procedure Performed amilcar zuniga Surgeon: angela wang Anesthesiologist: Vi Quiroz Type of Anesthesia: General Findings: severe cholecystitis Estimated Blood Loss: 50 ml Specimen Removed: DONALD Briscoe MD May 02, 2025 14:00
[2025-05-02] MEDS: HYDROmorphone/PF 0.2 MG/ML SYRINGE IV PRN (14:30)
[2025-05-02] MEDS: acetaminophen 1,000mg/100ml IV 100 ML IV PRN (14:34)
--- NOTE | 2025-05-02 18:46 | PROGRESS NOTE ---
Progress Note ID Providers to CC ~ Progress Note Progress Note: The patient is evaluated this morning prior to going for a laparoscopic cholecystectomy the patient is anxious and I ordered dose of lorazepam. On exam the patient is experiencing significant generalized abdominal discomfort. Note the patient is admitted after midnight and this is not in billable encounter PANTERA ALMEIDA DO May 02, 2025 18:46
[2025-05-02] MEDS: HYDROcodone/acetaminophen 10/325mg tab PO PRN (19:42)
--- NOTE | 2025-05-03 03:47 | CONSULTATION ---
DATE OF CONSULTATION: 05/02/2025 DICTATING PHYSICIAN: Vidal Andre MD REASON FOR CONSULTATION: Abdominal pain. HISTORY OF PRESENT ILLNESS: The patient is a 34-year-old male with a history of cholelithiasis, gastritis, seizure disorder, hepatitis, and meth use. Today, he complains of abdominal discomfort. Imaging revealed cholelithiasis with cholecystitis. A surgical evaluation is now requested. On further questioning, the patient has persistent upper abdominal discomfort. Pain is associated with nausea. PAST MEDICAL HISTORY: Cholelithiasis, gastritis, GERD, seizures, hepatitis, meth use. PAST SURGICAL HISTORY: Unremarkable. HOME MEDICATIONS: None. ALLERGIES: None. SOCIAL HISTORY: Meth use. No alcohol use. REVIEW OF SYSTEMS: See H and P. PHYSICAL EXAMINATION: GENERAL: A well nourished male in no distress. VITAL SIGNS: Unremarkable. HEART: Regular rate and rhythm. ABDOMEN: Palpation of the abdomen shows upper abdominal discomfort. EXTREMITIES: Unremarkable. NEUROLOGIC: Nonfocal. LABORATORY DATA: Included WBC of 11, hematocrit of 41, platelet count 224. Chemistries: BUN and creatinine 12 and 0.87. LFTs, bilirubin 1.2, alkaline phosphatase 148, lipase 100. IMAGING STUDIES: Abdominal ultrasound showed cholelithiasis, gallbladder wall thickening. CT of the abdomen shows evidence of pancreatitis and cholelithiasis with gallbladder wall thickening. IMPRESSION: * Cholelithiasis with cholecystitis. * History of GERD. * History of gastritis. * History of seizures. * History of hepatitis. * History of meth use. RECOMMENDATIONS: Robotic cholecystectomy, possible open. Vidal Andre MD TID: [id number] RECEIPT: [id number] KB/UDD
--- NOTE | 2025-05-03 03:53 | OPERATIVE REPORT ---
DATE OF SURGERY: 05/02/2025 DICTATING PHYSICIAN: Vidal nAdre MD PREOPERATIVE DIAGNOSES: Cholelithiasis, cholecystitis. POSTOPERATIVE DIAGNOSES: Cholelithiasis, cholecystitis. PROCEDURE PERFORMED: Robotic cholecystectomy. SURGEON: Vidal Andre MD. WASH TANK TENDER: None. ANESTHESIA: General/Dr. Quiroz. DRAINS: None. INDICATIONS FOR OPERATION: A 34-year-old male, who presented with abdominal pain and found to have severe cholecystitis. INTRAOPERATIVE FINDINGS: Severe cholecystitis. DESCRIPTION OF PROCEDURE: The patient was placed supine on the operating table. After induction of general anesthesia and placement of endotracheal tube, the abdomen was prepped and draped. A subumbilical incision was then made and Shani port placed using open technique and pneumoperitoneum was begun by insufflation of CO2. Additional ports were then placed, one in left lower quadrant and two on right. Robot was then brought to the field. Camera port docked. Camera placed, camera targeted. Additional ports were then docked and instruments placed. Abdomen was then explored. The patient was found to have severe cholecystitis. Gallbladder was decompressed. Fundus was grasped and retracted cephalad. Cystic duct was identified, isolated, clipped and divided the cystic artery. The gallbladder was mobilized off the gallbladder fossa. Gallbladder was found to be adequate. . Hemostasis was found to be adequate. Robotic instruments were removed. Gallbladder was placed in Endobag using laparoscope. Ports were then removed under laparoscopic vision with no evidence of active bleeding. Final port and camera withdrawn. Pneumoperitoneum was then evacuated. Wounds were closed in layers. Skin was closed with subcuticular stitch. Dressing was applied. The patient was transferred to recovery in stable condition. Vidal Andre MD TID: [id number] RECEIPT: [id number] KB/DIV
[2025-05-03 06:26] LABS: MEAN PLATELET VOLUME 8.3 FL (7.4-10.4); RED CELL DISTRIBUTION WIDTH 13.3 % (11.5-14.5)
[2025-05-03 06:44] VITALS: BP 116/68; PULSE 68; RESP 16; TEMP 98.9; O2SAT 98
[2025-05-03 07:35] LABS: CHOL/HDL RATIO 2.6 (0.00-4.99); CREATININE 0.93 MG/DL (0.60-1.10); LDL CHOLESTEROL 50 MG/DL (50-100); TOTAL CARBON DIOXIDE 28.6 MMOL/L (24-32); eCRCL 116 ML/MIN; eGFR > 90 ML/MIN
[2025-05-03 08:00] VITALS: RESP 18
[2025-05-03 10:16] VITALS: BP 107/63; PULSE 54; RESP 15; TEMP 97.9; O2SAT 97
--- NOTE | 2025-05-03 14:03 | PROGRESS NOTE ---
Progress Note ID Providers to CC ~ Progress Note Progress Note: doing well/home in am DONALD GERMAIN MD May 03, 2025 14:03
[2025-05-03 18:00] VITALS: BP 110/51; PULSE 84; RESP 17; TEMP 97.5; O2SAT 97
[2025-05-03 18:40] VITALS: BP 110/51; PULSE 84; RESP 17; TEMP 97.5; O2SAT 97
--- NOTE | 2025-05-03 18:45 | PROGRESS NOTE ---
Daily Progress Note Providers to CC ~ Antibiotic Timeout Antibiotic Ordered?: Yes Subjective The patient has pain in his significantly improved wanted to be discharged today however surgeon cleared the patient to be discharged in the a.m.. Objective Vital Signs Date Time Temp Pulse Resp B/P (MAP) Pulse Ox O2 Delivery O2 Flow Rate FiO2 05/03/25 17:32 18 05/03/25 10:16 97.9 54 107/63 (78) 97 Room Air 05/02/25 14:40 0.0 Result Diagram: 05/03/2552105/03/25521 Gen. No acute distress alert and oriented 4 Lungs clear to ascultation bilaterally, no wheezes rales or rhonchi appreciated Heart normal sinus rhythm no murmurs rubs or clicks noted Abdomen soft [id number] generalized tenderness bowel sounds are slightly hypoactive Lower extremities no clubbing cyanosis, nor edema appreciated bilaterally Coagulation Studies Laboratory Tests Test 05/02/25 02:36 Prothrombin Time 10.6 SECONDS (9.0-12.0) INR International Normalized Ratio 1.0 INR Activated Partial Thromboplast Time 28 SECONDS (22-32) Coagulation Comments Problem\Assessment\Plan Problems/Diagnosis: (1) Cholelithiases # acute cholecystitis severe Status post laparoscopic robotic cholecystectomy with Dr. Andre on 05/02/2025 Continue IV Zosyn # history of seizure disorder Not on any seizure medications No signs of seizures thus far Continue to monitor # methamphetamine use disorder Substance use navigator Kimberlyn Bower consult is ordered # hyponatremia Resolved continue monitor daily labs Disposition: Anticipate discharge in the a.m. Date of Service: May 03, 2025 Billing Provider: PANTERA ALMEIDA DO Common Visit Codes: [id number] INP/OBS CARE(HIGH) PANTERA ALMEIDA DO May 03, 2025 18:45
[2025-05-03 22:00] VITALS: BP 108/57; PULSE 78; RESP 18; TEMP 98.4; O2SAT 99
[2025-05-03] MEDS: diazepam inj 5 MG/ML inj. IV PRN (23:46)
[2025-05-04 04:11] LABS: MEAN PLATELET VOLUME 8.2 FL (7.4-10.4); RED CELL DISTRIBUTION WIDTH 13.3 % (11.5-14.5)
[2025-05-04 04:25] LABS: CREATININE 0.94 MG/DL (0.60-1.10); TOTAL CARBON DIOXIDE 29.0 MMOL/L (24-32); eCRCL 114 ML/MIN; eGFR > 90 ML/MIN
[2025-05-04 06:40] VITALS: BP 104/57; PULSE 60; RESP 14; TEMP 97.4; O2SAT 99
[2025-05-04 08:00] VITALS: RESP 18
[2025-05-04] MEDS ORDERED: HYDR-3972 PO (11:11)
[2025-05-04] MEDS ORDERED: ONDA-243 PO (11:11)
[2025-05-04 11:37] VITALS: RESP 16
--- NOTE | 2025-05-04 18:55 | DISCHARGE SUMMARY ---
Discharge Summary Providers to CC ~ Discharge Summary Admission Diagnosis: Acute cholecystitis Hospital Course DATE OF ADMISSION: 05/02/2025 DATE OF DISCHARGE: 05/04/2025 Discharge Diagnosis\\Comment: Acute cholecystitis severe History of seizure disorder Hyponatremia Methamphetamine use disorder Operations\\Procedures: Robotic laparoscopic cholecystectomy Consultants: Dr Vidal Andre general surgeon Complications: None Condition on DC: Stable New Medications: ONDANSETRON ODT 4mg tablet (Ondansetron Odt) 4 Mg Tab.rapdis 1 TAB PO Q6H PRN for nausea/vomiting, #16 TAB 0 Refills Hydrocodone Bit/Acetaminophen (Hydrocodon-Acetaminophn 10-325 tablet) 10mg- 325mg Tablet 1 TAB PO Q8H PRN for SEVERE PAIN 7-10, #18 TAB Discontinued Medications: Home Med List (No Home Medications) Each Discharge Summary: Patient was admitted by resident physician CHALO Evans , under the supervision of THIAGO Meyer MD with the following HPI:"34-year-old male with history of cholelithiasis, gastritis, GERD, seizure disorder, history of hepatitis and meth use came to the ED with complaints of abdominal pain. He states that he has had abdominal pain for the past 3 days and has been gradually worsening when he eats. He states that he initially got a central chest pain and then right lower quadrant pain which worsens when taking deep breath or moving or talking and improves when lying still. He states that he woke up an hour prior to arrival with significant worsening of his right-sided abdominal pain. He denies taking fatty foods. His severity of pain was 10/10, which has reduced after the pain meds in the ED. He denies fever, chills. He reports having nausea and dry heaves and denied vomiting, recent travel, sick contacts." The patient went for laparoscopic robotic cholecystectomy with Dr. Andre surgeon on 05/02/2025 was discovered the patient had severe cholecystitis the patient continued to have moderate to significant pain however did improve and the patient did tolerate advancement in his diet the patient is cleared to be discharged by surgery the . The patient has a history of seizure disorder however no seizures occurred during hospitalization Gen. No acute distress alert and oriented 4 Lungs clear to ascultation bilaterally, no wheezes rales or rhonchi appreciated Heart normal sinus rhythm no murmurs rubs or clicks noted Abdomen soft mild to moderate generalized tenderness bowel sounds are normoactive Lower extremities no clubbing cyanosis, nor edema appreciated bilaterally The patient felt ready to be discharged and was medically cleared to be discharged on 05/04/2025 The patient was seen and evaluated on day of discharge. Time spent on discharge 35 minutes The patient is discharged with a short script of [place] total of 18 tablets and ondansetron ODT PRN nausea The patient is to follow up with Dr. Andre one-week The patient was advised to returned to the ED in the interim if he develops fever, redness or drainage from the surgical site. *Problems/Diagnosis: (1) Cholelithiases Status: Acute Total Time Spent on D/C: > 30 Minutes Date of Service: May 04, 2025 Billing Provider: PANTERA ALMEIDA DO Common Visit Codes: 74762-VNR/OBS DISCH DAY >30min PANTERA ALMEIDA DO May 04, 2025 18:55
--- NOTE | 2025-05-05 16:11 | PATHOLOGY REPORT ---
[facility] [address] [place] [address] SURGICAL PATHOLOGY REPORT CaseNumber: [id number] Surgeon:Vidal Andre M.D. CLINICAL INFORMATION CLINICAL INFORMATION: Not provided. DIAGNOSIS DIAGNOSIS: GALLBLADER; CHOLECYSTECTOMY - CHOLELITHIASIS AND ACUTE CHOLECYSTITIS. MICROSCOPIC DESCRIPTION MICROSCOPIC DESCRIPTION: One slide is examined. Performed. GROSS DESCRIPTION GROSS DESCRIPTION: Received in a container of formalin labeled with the patient's name, number, and identified per the requisition as "gallbladder" is a disrupted gallbladder which measures 11 cm long by 4 cm in diameter. The serosa is roughened and purple-diaz. The surgical bed is unremarkable. Sectioning reveals a small amount of bloody fluid and 7 faceted yellow-green stones which measure up to 1.5 cm. The mucosa is red, granular, eroded, and fibrotic; however, a discrete mass lesion is not identified. The wall of the gallbladder measures up to 1.2 cm thick. Pedigree Tracer sections of the neck and wall of the gallbladder are submitted as A1. The time at which the specimen was removed was 1339. The time at which the specimen was placed in formalin was 1350. Electronically signed by: Zack Peters M.D. 05/05/2025 3:37:00 PM
== END 2025-05-04 13:25 | disposition home or self-care (01) | DRG 263 ==
LOC: ER 22:35 → ED HOLD 05-02 02:12 → SUR 3N 05-02 03:35
PROVIDERS: ADMIT Internal Medicine; ATTEND Family Medicine
PROC: 0FT44ZZ Resection of Gallbladder, Percutaneous Endoscopic Approach (ICD-10-PCS; principal; 2025-05-03)
PROC: 8E0W4CZ Robotic Assisted Procedure of Trunk Region, Percutaneous Endoscopic Approach (ICD-10-PCS; 2025-05-03)
DX: K80.00 Calculus of gallbladder with acute cholecystitis without obstruction (principal); E87.1 Hypo-osmolality and hyponatremia; F15.90 Other stimulant use, unspecified, uncomplicated; G40.909 Epilepsy, unspecified, not intractable, without status epilepticus; K21.9 Gastro-esophageal reflux disease without esophagitis
CPT/HCPCS: 36415; 74176; 76700; 80048; 80053; 80061; 80305; 81003; 82948; 83036; 83605; 83690; 83735; 84100; 84132; 84145; 85025; 85610; 85730; 86885; 86900; 86901; 87040; 96365; 96375; 99285; A4215; A4615; A4618; A7000; G0378; J0131; J1100; J1171; J1885; J2003; J2250; J2270; J2274; J2405; J2543; J2704; J2710; J3010; J3360; J3490; J7030; J7120